=== PATIENT | female | born 1970 | race Caucasian/White ===

== ENCOUNTER → 2016-11-27 | Outpatient (CLI) | payer MEDICARE, MEDICAID ==
--- NOTE | 2016-11-27 16:17 | XCELERA REPORT ---
[address] [address] Lower Extremity Venous Evaluation Name: EILEEN TAPIA Age: 46 yrs Gender: Female : 1970 Patient Status: Outpatient Patient Location: Study Date: 11/27/2016 03:38 PM Procedure: Color flow and duplex imaging of the veins of the left lower extremity as well as the right Common Femoral vein. Reason For Study: LLE PAIN Ordering Physician: YAMILET GOOD Performed By: Eloisa Teresa Right Sided Venous Evaluation The right common femoral vein is fully compressible. Spontaneous and phasic flow is present in the right common femoral vein. Left Sided Venous Evaluation A lucent oval structure, 2.83 x 0.95 is probably a Popliteal cyst. Normal vessel filling wall to wall, compression and augmentation as well as Colour flow down to the infrageniculate veins. Critical Findings Called [phone] at about 1600. Interpretation Summary No duplex evidence of DVT or obstruction in the left lower extremity nor in the right Common Femoral vein. A left Popliteal cyst is noted. : YAMILET GOOD > Dakota Lorenzo
== END ==
LOC: SP 15:36
PROVIDERS: ATTEND Physician Assistant
DX: M79.662 Pain in left lower leg (principal)
CPT/HCPCS: 93971

== ENCOUNTER → 2016-12-25 | Outpatient (CLI) | payer MEDICARE, MEDICAID | LOC: RAD 07:16 | PROVIDERS: ATTEND Physician Assistant | DX: M25.562 Pain in left knee (principal) ==

== ENCOUNTER 2017-01-22 13:44 | Emergency (ER) | payer MEDICARE, MEDICAID ==
[2017-01-22] MEDS ORDERED: ONDANSETRON 4 MG TAB.RAPDIS PO ONE (14:32)
[2017-01-22] MEDS ORDERED: IBUPROFEN 800 MG TABLET PO ONE (14:32)
--- NOTE | 2017-01-22 14:33 | ER Document Report ---
ED Medical Screen (RME) - General Stated Complaint: BACK PAIN Mode of Arrival: Wheelchair Information source: Patient Notes: pt presents with c/o back pain, reports hx of back problems for 20 years. Last sunday she twisted her back. Went to [place] all day, coughed and snapped something in her back. Denies urinary/bowel retention/incontinence. Reports left hand was tingling, pain goes down right leg. Did not take any pain medication. I have greeted and performed a rapid initial assessment of this patient. A comprehensive ED assessment and evaluation of the patient, analysis of test results and completion of the medical decision making process will be conducted by additional ED providers. TRAVEL OUTSIDE OF THE [place] IN LAST 30 DAYS: No Physical Exam - Vital signs Vitals: Temp Pulse Resp BP Pulse Ox 98.1 F 106 H 18 150/75 H 97 01/22/17 13:55 01/22/17 13:55 01/22/17 13:55 01/22/17 13:55 01/22/17 13:55 Course - Vital Signs Vital signs: Temp Pulse Resp BP Pulse Ox 98.1 F 106 H 18 150/75 H 97 01/22/17 13:55 01/22/17 13:55 01/22/17 13:55 01/22/17 13:55 01/22/17 13:55
[2017-01-22] MEDS ORDERED: DIAZEPAM INJ 10 MG/2 ML DISP.SYRIN IM ONE (19:22)
[2017-01-22] MEDS ORDERED: HYDROCODONE/ACETAMINOPHEN 5-325 MG 6 TAB/DSPK PO PRN (19:22)
[2017-01-22] MEDS ORDERED: KETOROLAC TROMETHAMINE 60 MG/2 ML SDV IM ONE (19:22)
--- NOTE | 2017-01-22 19:25 | ER Document Report ---
ED Neck/Back Problem - General Chief Complaint: Back Pain Stated Complaint: BACK PAIN Time seen by provider: 19:23 Mode of Arrival: Wheelchair Information source: Patient TRAVEL OUTSIDE OF THE [place] IN LAST 30 DAYS: No - HPI Patient complains to provider of: Pain, Lower back Onset: Last week Onset: Sudden Timing: Constant, Still present Quality of pain: Achy Severity: Severe Pain Level: 5 Context: Turning Recent injury: Yes Associated symptoms: Radiation to leg - Right side. denies: Incontinence, Motor loss, Numbness/tingling, Unable to urinate Exacerbated by: Movement of trunk Relieved by: Nothing Similar symptoms previously: Yes Notes: 46-year-old female presents to the emergency room complaining of lower back pain radiating down the right leg is been going on for the past week, states she was getting up off the toilet interest to the wrong way, felt something snap in her back and she has been having pain ever since, she denies any numbness or tingling to the distal extremities or the groin, no bowel or bladder dysfunction, no fevers, she reports a history of low back pain 20 years but this is worse than usual, she reports the pain is worse with any movement of the trunk, there is virtually no alleviating position she consented and make it better - Related Data Allergies/Adverse Reactions: gabapentin [From Neurontin] Allergy (Verified 01/22/17 14:36) morphine Allergy (Verified 01/22/17 14:36) Past Medical History - General Information source: Patient - Social History Smoking Status: Current Every Day Smoker Chew tobacco use (# tins/day): Yes Family History: Reviewed & Not Pertinent Patient has suicidal ideation: No Patient has homicidal ideation: No Renal/ Medical History: Denies: Hx Peritoneal Dialysis - Immunizations Hx Diphtheria, Pertussis, Tetanus Vaccination: Yes Review of Systems - Review of Systems Constitutional: No symptoms reported EENT: No symptoms reported Cardiovascular: No symptoms reported Respiratory: No symptoms reported Gastrointestinal: No symptoms reported Genitourinary: No symptoms reported Female Genitourinary: No symptoms reported Musculoskeletal: See HPI Skin: No symptoms reported Hematologic/Lymphatic: No symptoms reported Neurological/Psychological: No symptoms reported -: Yes All other systems reviewed and negative Physical Exam - Vital signs Vitals: Temp Pulse Resp BP Pulse Ox 98.1 F 106 H 18 150/75 H 97 01/22/17 13:55 03/27/17 13:55 01/22/17 13:55 01/22/17 13:55 01/22/17 13:55 Interpretation: Tachycardic - General General appearance: Other - Tearful In distress: None - HEENT Head: Normocephalic, Atraumatic Eyes: Normal Conjunctiva: Normal Extraocular movements intact: Yes Eyelashes: Normal Pupils: PERRL - Respiratory Respiratory status: No respiratory distress Chest status: Nontender Breath sounds: Normal Chest palpation: Normal - Cardiovascular Rhythm: Regular Heart sounds: Normal auscultation Murmur: No - Abdominal Inspection: Obese Distension: No distension Bowel sounds: Normal Tenderness: Nontender Organomegaly: No organomegaly - Back Back: Tender - Tender to palpate in the right paraspinal musculature, radiating down the right buttock - Extremities General upper extremity: Normal inspection, Other - Distal sensation and motor is intact with 2+ DP pulses General lower extremity: Normal inspection - Neurological Neuro grossly intact: Yes Cognition: Normal Orientation: AAOx4 [place] Coma Scale Eye Opening: Spontaneous [place] Coma Scale Verbal: Oriented [place] Coma Scale Motor: Obeys Commands [place] Coma Scale Total: 15 Speech: Normal Cranial nerves: Normal - Skin Skin Temperature: Warm Skin Moisture: Dry Skin Color: Normal Course - Re-evaluation Re-evalutation: 01/22/17 19:26 Patient with lumbar musculoskeletal strain, she was provided with muscle relaxers and pain medication as well as information for follow-up, advised to return if symptoms worsen, patient acknowledges understanding and agreement with this plan 01/22/17 20:34 Patient does report significant pain relief, in fact she was able to stand up, walk to the bathroom with assistance and actually had a smile on her face on reevaluation, patient was discharged with instructions as well as prescription - Vital Signs Vital signs: Temp Pulse Resp BP Pulse Ox 98.1 F 108 H 16 157/88 H 96 01/22/17 13:55 01/22/17 20:13 01/22/17 20:13 01/22/17 20:13 01/22/17 20:13 Discharge - Discharge Clinical Impression: Lumbar strain Qualifiers: Encounter type: initial encounter Qualified Code(s): S39.012A - Strain of muscle, fascia and tendon of lower back, initial encounter Condition: Stable Disposition: HOME, SELF-CARE Instructions: Low Back Pain ([facility]), Ice Packs ([facility]), Muscle Strain ([facility]), Oral Narcotic Medication ([facility]), Warm Packs ([facility]) Additional Instructions: Follow up with your primary care provider in one to 2 days. Return to the emergency room immediately if symptoms worsen or any additional concerns. Prescriptions: Carisoprodol [Soma 350 Mg Tablet] 350 mg PO TID #30 tablet Oxycodone HCl/Acetaminophen [Percocet 5-325 mg Tablet] 1 - 2 tab PO ASDIR PRN # 20 tablet PRN Reason: Referrals: ANGELINA FRAZIER DO [Primary Care Provider] - Follow up as needed
[2017-01-22 20:14] VITALS: BP 157/88
== END 2017-01-22 20:13 | disposition home or self-care (01) ==
LOC: ER 13:44
DX: S39.012A Strain of muscle, fascia and tendon of lower back, initial encounter (principal); X50.1XXA Overexertion from prolonged static or awkward postures, initial encounter; X58.XXXA Exposure to other specified factors, initial encounter; Y93.89 Activity, other specified; R00.0 Tachycardia, unspecified; F17.200 Nicotine dependence, unspecified, uncomplicated; Z88.5 Allergy status to narcotic agent; Z88.6 Allergy status to analgesic agent
CPT/HCPCS: 99283; A9270 ×3; J3360; J1885; S0119

== ENCOUNTER 2017-05-03 08:02 | Day surgery (SDC) | payer MEDICARE, MEDICAID ==
[2017-05-02 13:26] LABS: HEMATOCRIT 45.4 % (36.0-47.0); HGB HCT DIFFERENCE -0.4; MEAN CORPUSCULAR HEMOGLOBIN 30.9 pg (27.0-33.4); MEAN CORPUSCULAR VOLUME 94 fl (80-97); RED BLOOD COUNT 4.84 10^6/uL (3.72-5.28); RED CELL DISTRIBUTION WIDTH 16.4 % (11.5-14.0); WHITE BLOOD COUNT 7.1 10^3/uL (4.0-10.5)
[2017-05-02 13:37] LABS: APPEARANCE,URINE SLIGHTLY-CLOUDY; BILIRUBIN,URINE NEGATIVE (NEGATIVE); GLUCOSE, URINE NEGATIVE (NEGATIVE); KETONES,URINE NEGATIVE (NEGATIVE); LEUKOCYTE ESTERASE,URINE NEGATIVE (NEGATIVE); NITRITE,URINE NEGATIVE (NEGATIVE); PROTEIN,URINE NEGATIVE (NEGATIVE); URINE SPECIFIC GRAVITY 1.003; UROBILINOGEN,URINE NEGATIVE mg/dL (<2.0)
[~2017-05-03 08:02] MED LIST: LACTATED RINGERS 1000 ML IV PRN; LIDOCAINE 0.5% INJ-PF (5 MG/ML) 50 ML SDV SUBCUT PRN
[2017-05-03] MEDS ORDERED: MIDAZOLAM 2 MG/2 ML INJ ONE (10:55)
[2017-05-03] MEDS ORDERED: PROPOFOL INJ 200 MG/20 ML VIAL IV ONE (10:55)
[2017-05-03] MEDS ORDERED: KETOROLAC TROMETHAMINE 60 MG/2 ML SDV ONE (10:55)
[2017-05-03] MEDS ORDERED: FENTANYL CITRATE INJ/PF 100 MCG/2 ML AMPUL ONE (10:55)
[2017-05-03] MEDS ORDERED: ONDANSETRON HCL INJ/PF 4 MG/2 ML SDV ONE (10:56)
[2017-05-03] MEDS ORDERED: LIDOCAINE 1%/EPINEPHRINE INJ 20 ML VIAL ONE (11:09)
[2017-05-03] MEDS ORDERED: FENTANYL CITRATE INJ/PF 250 MCG/5 ML AMPULE ONE (11:27)
[2017-05-03] MEDS ORDERED: DIPHENHYDRAMINE HCL 50 MG/ML VIAL IV PRN (12:02)
[2017-05-03] MEDS ORDERED: MEPERIDINE HCL/PF INJ 25 MG/1 ML DISP.SYRIN IV PRN (12:02)
[2017-05-03] MEDS ORDERED: PROMETHAZINE HCL INJ 25 MG/1 ML VIAL IV PRN ×2 (12:02)
[2017-05-03] MEDS ORDERED: FENTANYL CITRATE INJ/PF 100 MCG/2 ML AMPUL IV PRN ×3 (12:02)
--- NOTE | 2017-05-03 12:58 | OPERATIVE REPORT E ---
Operative Report NAME: EILEEN TAPIA : 1970 AGE: 46Y DATE OF SURGERY: 05/03/2017 ROOM: PREOPERATIVE DIAGNOSES: 1. ABNORMAL UTERINE BLEEDING. 2. ANEMIA. 3. STRESS URINARY INCONTINENCE. POSTOPERATIVE DIAGNOSES: 1. ABNORMAL UTERINE BLEEDING. 2. ANEMIA. 3. STRESS URINARY INCONTINENCE. SURGEON: LORELEI POLLARD M.D. ANESTHESIA: Dr. Pena with general. FINDINGS: A uterine cavity that measured a length of 6.5 cm. Width was 3.0 cm. COMPLICATIONS: None. ESTIMATED BLOOD LOSS: 5 mL. SPECIMENS REMOVED: None. PROCEDURE: Novasure ablation with hysteroscope. PROCEDURE IN DETAIL: Patient was taken to the operating room, prepared and draped in a normal sterile fashion in a dorsal lithotomy position. Under sterile conditions, a Myrick catheter was placed to gravity with the anticipation of doing a suburethral tape to help with the stress urinary incontinence. The sterile speculum was placed into the vagina and the cervix was grasped with a single-tooth tenaculum on the anterior aspect. The cervix was then sounded to approximately 12 cm. The cervix was then dilated to accommodate the Novasure device and the device was inserted and fired adequately without difficulty. Once the Novasure was completed, the hysteroscope was then reduced and the cavity was reinspected once more. I then began examining the patient in regards to the suburethral tape that was planned as part of this procedure. It was noted that her obturator foramen was quite superior to the area that I would need to operate, and her pelvic bones were large and I felt that the device could not be safely fired into the proper space for placement, and that if I did attempt to place the tape that there was fear of actually kinking her urethra to where she would not be able to void adequately, so I decided to abandon this portion of the case and referred the patient to urogynecology later on for a possible placement. Patient tolerated the procedure well. Sponge, lap, and needle counts were correct x2 and the patient was taken to recovery in stable condition. DICTATING PHYSICIAN: LORELEI POLLARD M.D. [id number] PHY#: [id number] ID: [id number] JOB#: [id number] ACCT: [id number] cc:LORELEI POLLARD M.D. >
--- NOTE | 2017-05-03 12:59 | EKG REPORT ---
SEVERITY:- NORMAL ECG - SINUS RHYTHM : Confirmed by: Edgar Mcdonald MD 03-May-2017 12:58:43
[2017-05-03] MEDS ORDERED: OXYCODONE-ACETAMINOPHEN 5-325 MG TABLET ONE (13:09)
[2017-05-03] MEDS ORDERED: DEXAMETHASONE SOD PHOSPHATE INJ 4 MG/1 ML VIAL ONE (13:19)
[2017-05-03] MEDS ORDERED: SUCCINYLCHOLINE CHLORIDE INJ 200 MG/10 ML VIAL ONE (13:19)
[2017-05-03 13:57] VITALS: BP 160/88
== END 2017-05-03 14:05 | disposition home or self-care (01) ==
LOC: OROUT 08:02
PROVIDERS: ATTEND Obstetrics & Gynecology
PROC: 0U5B8ZZ Destruction of Endometrium, Via Natural or Artificial Opening Endoscopic (ICD-10-PCS; principal; 2017-05-03 10:30)
DX: N93.9 Abnormal uterine and vaginal bleeding, unspecified (principal); D64.9 Anemia, unspecified; N39.3 Stress incontinence (female) (male); I10 Essential (primary) hypertension; J44.9 Chronic obstructive pulmonary disease, unspecified; F17.210 Nicotine dependence, cigarettes, uncomplicated; F32.9 Major depressive disorder, single episode, unspecified; Z21 Asymptomatic human immunodeficiency virus [HIV] infection status; G43.909 Migraine, unspecified, not intractable, without status migrainosus; E66.9 Obesity, unspecified; Z88.5 Allergy status to narcotic agent; Z68.41 Body mass index [BMI] 40.0-44.9, adult
CPT/HCPCS: 36415 ×2; 84132; 84703; 85027; 81001; 93005; 93010; 58563; J2250; J1100; J1885; J3010 ×2; J3490; A9270; J0330; J2405; J2704; 952

== ENCOUNTER → 2017-05-31 | Outpatient (CLI) | payer MEDICARE, MEDICAID ==
[2017-05-31 09:56] LABS: APPEARANCE,URINE SLIGHTLY-CLOUDY; BILIRUBIN,URINE NEGATIVE (NEGATIVE); GLUCOSE, URINE NEGATIVE (NEGATIVE); KETONES,URINE NEGATIVE (NEGATIVE); LEUKOCYTE ESTERASE,URINE NEGATIVE (NEGATIVE); NITRITE,URINE NEGATIVE (NEGATIVE); PROTEIN,URINE NEGATIVE (NEGATIVE); URINE SPECIFIC GRAVITY 1.004; UROBILINOGEN,URINE NEGATIVE mg/dL (<2.0)
[2017-05-31 10:21] LABS: ABSOLUTE BASOPHILS # (AUTO) 0.1 10^3/uL (0.0-0.2); ABSOLUTE EOSINOPHILS # (AUTO) 0.2 10^3/uL (0.0-0.6); ABSOLUTE LYMPHOCYTES (AUTO) 1.5 10^3/uL (0.5-4.7); ABSOLUTE MONOCYTES (AUTO) 0.5 10^3/uL (0.1-1.4); ABSOLUTE NEUT (AUTO) 3.6 10^3/uL (1.7-8.2); BASOPHILS % (AUTO) 0.9 % (0-2); EOSINOPHILS % (AUTO) 4.1 % (0-6); HEMATOCRIT 41.1 % (36.0-47.0); HGB HCT DIFFERENCE 0.9; LYMPHOCYTES % (AUTO) 25.2 % (13-45); MEAN CORPUSCULAR HEMOGLOBIN 32.2 pg (27.0-33.4); MEAN CORPUSCULAR VOLUME 95 fl (80-97); MONOCYTES % (AUTO) 9.2 % (3-13); RED BLOOD COUNT 4.34 10^6/uL (3.72-5.28); RED CELL DISTRIBUTION WIDTH 15.5 % (11.5-14.0); SEGMENTED NEUTROPHILS % (AUTO) 60.6 % (42-78); WHITE BLOOD COUNT 5.9 10^3/uL (4.0-10.5)
--- NOTE | 2017-05-31 10:27 | RADIOLOGY REPORT (SQ) ---
EXAM DESCRIPTION: CHEST PA/LATERAL COMPLETED DATE/TIME: 05/31/2017 9:31 am REASON FOR STUDY: PRE OP COMPARISON: None. EXAM PARAMETERS: NUMBER OF VIEWS: two views TECHNIQUE: Digital Frontal and Lateral radiographic views of the chest acquired. RADIATION DOSE: NA LIMITATIONS: none FINDINGS: LUNGS AND PLEURA: No opacities, masses or pneumothorax. No pleural effusion. MEDIASTINUM AND HILAR STRUCTURES: No masses or contour abnormalities. HEART AND VASCULAR STRUCTURES: Heart normal size. No evidence for failure. BONES: No acute findings. HARDWARE: None in the chest. OTHER: No other significant finding. IMPRESSION: NO SIGNIFICANT RADIOGRAPHIC FINDING IN THE CHEST. TECHNICAL DOCUMENTATION: JOB ID: [id number] [employer]- All Rights Reserved
[2017-05-31 11:24] LABS: ANION GAP 10 (5-19); BLOOD UREA NITROGEN 16 mg/dL (7-20); CALCIUM 9.8 mg/dL (8.4-10.2); CARBON DIOXIDE 27 mmol/L (22-30); CHLORIDE 99 mmol/L (98-107); CREATININE RESULT 0.87 mg/dL (0.52-1.25); GLUCOSE 84 mg/dL (75-110); POTASSIUM 3.7 mmol/L (3.6-5.0); SODIUM 136.3 mmol/L (137-145)
--- NOTE | 2017-05-31 13:09 | EKG REPORT ---
SEVERITY:- NORMAL ECG - SINUS RHYTHM : Confirmed by: Edgar Mcdonald MD 31-May-2017 13:07:56
== END ==
LOC: OD 08:29
PROVIDERS: ATTEND Orthopaedic Surgery
DX: Z01.818 Encounter for other preprocedural examination (principal)
CPT/HCPCS: 36415; 71020; 80048; 81001; 85025; 93005; 93010

== ENCOUNTER 2017-06-20 05:21 | Inpatient (IN) | payer MEDICARE, MEDICAID ==
[~2017-06-20 05:21] MED LIST changes: +BUPIVACAINE INJ/PF LIPOSOME/PF 266 MG/20 ML SDV INJ PRN; +CEFAZOLIN INJ 1 GM VIAL IV PRN; +IBUPROFEN 800 MG in NORMAL SALINE 250 ML IV PRN; +LANSOPRAZOLE 15 MG TAB.RAP.DR PO PRN; +OXYCODONE HCL SR 10 MG TABLET PO PRN; +VANCOMYCIN HCL 1,000 MG in DEXTROSE 5%-WATER 250 ML IV PRN
[2017-06-20] MEDS ORDERED: BUPIVACAINE INJ/PF LIPOSOME/PF 266 MG/20 ML SDV ONE (06:45)
[2017-06-20] MEDS ORDERED: THROMBIN (BOVINE) TOPICAL 20000 UNIT VIAL ONE (06:45)
[2017-06-20] MEDS ORDERED: THROMBIN (BOVINE) 5000 UNIT EPITAXIS KIT ONE (06:45)
[2017-06-20] MEDS ORDERED: MIDAZOLAM 2 MG/2 ML INJ ONE (07:11)
[2017-06-20] MEDS ORDERED: EPHEDRINE SULFATE INJ 50 MG/1 ML AMPULE ONE (07:12)
[2017-06-20] MEDS ORDERED: PROPOFOL INJ 200 MG/20 ML VIAL IV ONE ×2 (07:12)
[2017-06-20] MEDS ORDERED: KETAMINE HCL INJ 500 MG/10 ML VIAL ONE (07:12)
[2017-06-20] MEDS ORDERED: TRANEXAMIC ACID INJ/PF 1,000 MG/10 ML SDV IV ONE ×2 (07:13→10:30)
[2017-06-20] MEDS ORDERED: FENTANYL CITRATE INJ/PF 250 MCG/5 ML AMPULE ONE (07:31)
[2017-06-20] MEDS ORDERED: MEPERIDINE HCL/PF INJ 25 MG/1 ML DISP.SYRIN IV PRN (08:07)
[2017-06-20] MEDS ORDERED: FENTANYL CITRATE INJ/PF 100 MCG/2 ML AMPUL IV PRN ×3 (08:07)
[2017-06-20] MEDS ORDERED: PROMETHAZINE HCL INJ 25 MG/1 ML VIAL IV PRN ×2 (08:07)
[2017-06-20] MEDS ORDERED: DIPHENHYDRAMINE HCL 50 MG/ML VIAL IV PRN ×2 (08:07→08:50)
[2017-06-20] MEDS ORDERED: ALBUTEROL SULFATE HFA (90 MCG/PUFF) 8 GM MDI (1 MDI/ER DISP) IH PRN (08:49)
[2017-06-20] MEDS ORDERED: BUDESONIDE/FORMOTEROL 160-4.5 MCG 60 PUFF/6 GM MDI IH PRN (08:49)
--- NOTE | 2017-06-20 08:49 | Operative Report ---
Operative Report DATE OF SURGERY: 06/20/17 PREOPERATIVE DIAGNOSIS: Left knee arthritis OPERATION: Left knee arthroplasty SURGEON: YAMILET WANG 1ST MEDICAL LIAISON: CELESTE OCSTA ANESTHESIA: GA TISSUE REMOVED OR ALTERED: Bone to pathology ESTIMATED BLOOD LOSS: 200 PROCEDURE: Implants used: Femur: Omega triathlon #6 CR femur Tibia: #5 tibia Tibial liner: 9 mm CS insert Patella: 32 mm oval patella Procedure with the patient supine on the operating table the left the limb is prepped and draped in a sterile fashion. The limb was elevated for exsanguination and the tourniquet inflated to 280 torr. A standard midline median parapatellar approach the knee is taken. Access is gained to the femoral canal through the intercondylar notch. Intramedullary alignment instrumentation used to resect 10 mm of distal femur in 5 of valgus. Sizing guide indicated a size 6 femur. Appropriate cutting jig is then used to fashion anterior posterior and chamfer cuts. A trial reduction femurs performed and this is judged to be adequate. Attention was next turned to the tibia. Using an extra medullary alignment system 9 millimeters was resected off the lateral tibial plateau. This is sized to a size 5 tibia. A trial reduction was now performed with a 6 femur and a 5 tibia using a 9 millimeters spacer. It is full extension and central patellofemoral tracking. The articular surface the patella was next resected using an oscillating saw. All trial implants were removed. Polymethylmethacrylate is mixed and used to cement the above implants in place. On adequate curing the cement excess cement was removed the tourniquet was deflated hemostasis obtained the wound is then closed in layers using interrupted Vicryl followed by leola. A sterile compressive dressing was applied and the patient returned to recovery room in satisfactory condition.
[2017-06-20] MEDS ORDERED: ONDANSETRON 4 MG TAB.RAPDIS PO PRN (08:50)
[2017-06-20] MEDS ORDERED: RINGERS SOLUTION,LACTATED 1,000 ML IV PRN (08:50)
[2017-06-20] MEDS ORDERED: ZOLPIDEM TARTRATE 5 MG TABLET PO PRN (08:50)
[2017-06-20] MEDS ORDERED: ONDANSETRON HCL INJ/PF 4 MG/2 ML SDV IV PRN (08:50)
[2017-06-20] MEDS ORDERED: ACETAMINOPHEN 325 MG TABLET PO PRN (08:50)
[2017-06-20] MEDS ORDERED: MAG HYDROX/AL HYDROX/SIMETH SUSP 30 ML UDCUP PO PRN (08:50)
[2017-06-20] MEDS ORDERED: ACETAMINOPHEN 100 ML IV ONE (09:20)
[2017-06-20] MEDS ORDERED: HYDROMORPHONE HCL INJ/PF 2 MG/ML AMPULE ONE (09:20)
[2017-06-20] MEDS ORDERED: HYDROMORPHONE HCL INJ/PF 2 MG/ML AMPULE IV PRN (09:30)
[2017-06-20] MEDS ORDERED: SUCCINYLCHOLINE CHLORIDE INJ 200 MG/10 ML VIAL ONE (09:51)
[2017-06-20] MEDS ORDERED: DEXAMETHASONE SOD PHOSPHATE INJ 4 MG/1 ML VIAL ONE (09:51)
[2017-06-20] MEDS ORDERED: ONDANSETRON HCL INJ/PF 4 MG/2 ML SDV ONE (09:51)
[2017-06-20] MEDS ORDERED: KETOROLAC TROMETHAMINE 60 MG/2 ML SDV ONE (09:51)
[2017-06-20] MEDS ORDERED: LIDOCAINE 2% INJ-PF (20 MG/ML) 10 ML AMPUL ONE (09:51)
[2017-06-20] MEDS: HYDROMORPHONE HCL INJ/PF 2 MG/ML AMPULE ONE ×2 (09:55→10:05)
[2017-06-20] MEDS ORDERED: (PENDING PHARMACY ID) (Multivit-Min/Iron Fum/Folic Ac [Multi-Vitamin-Minerals Tablet] 1 TA PO SCH (10:00)
[2017-06-20] MEDS ORDERED: (PENDING PHARMACY ID) (Lisinopril [Lisinopril] 40 MG) PO SCH (10:00)
[2017-06-20] MEDS ORDERED: REYATAZ 300 MG PO SCH (10:00)
[2017-06-20] MEDS ORDERED: [UNRECOGNIZED DRUG - OTHER] PO SCH (10:00)
--- NOTE | 2017-06-20 10:04 | RADIOLOGY REPORT (SQ) ---
EXAM DESCRIPTION: KNEE LEFT 2 VIEWS COMPLETED DATE/TIME: 06/20/2017 9:45 am REASON FOR STUDY: Post OP -Long Cassette in PACU M17.12 UNILATERAL PRIMARY OSTEOARTHRITIS, LEFT KNE E COMPARISON: MRI left knee 12/25/2016 NUMBER OF VIEWS: Two views TECHNIQUE: Digital radiographic images of the left knee post-procedure. LIMITATIONS: None. FINDINGS: BONES: No worrisome or unexpected findings post-procedure. DEVICE: Left total knee replacement with patellar resurfacing SOFT TISSUES: No worrisome findings. Expected postoperative soft tissue changes. IMPRESSION: SATISFACTORY POSTOPERATIVE LEFT KNEE. TECHNICAL DOCUMENTATION: JOB ID: [id number] [employer]- All Rights Reserved
[2017-06-20] MEDS: OXYCODONE HCL SR 10 MG TABLET PO SCH ×2 (13:59→21:35)
[2017-06-20] MEDS: IBUPROFEN 800 MG in NORMAL SALINE 250 ML IV SCH ×2 (14:46→21:35)
[2017-06-20] MEDS ORDERED: ALBUTEROL SULFATE HFA (90 MCG/PUFF) 200 PUFF/8.5 GM MDI IH PRN (15:39)
[2017-06-20] MEDS: SENNOSIDES/DOCUSATE 8.6-50 MG 1 EACH TABLET PO SCH (17:39)
[2017-06-20] MEDS: OXYBUTYNIN CHLORIDE 5 MG TABLET PO SCH (17:39)
[2017-06-20] MEDS ORDERED: EMTRICITABINE/TENOFOVIR 200-300 MG TABLET PO SCH (18:00)
[2017-06-20] MEDS ORDERED: RITONAVIR 100 MG TABLET PO SCH (18:00)
[2017-06-20] MEDS ORDERED: VALACYCLOVIR HCL 500 MG TABLET PO SCH (18:00)
[2017-06-20] MEDS ORDERED: VANCOMYCIN HCL 1,000 MG in DEXTROSE 5%-WATER 250 ML IV ONE (20:50)
[2017-06-20] MEDS: BUDESONIDE/FORMOTEROL 80-4.5 MCG 60 PUFF/6.9 GM MDI IH SCH (21:35)
[2017-06-20] MEDS ORDERED: RIVAROXABAN 10 MG TABLET PO SCH (22:00)
[2017-06-21] MEDS: OXYCODONE HCL IR 5 MG TABLET PO PRN ×2 (04:38→15:08)
[2017-06-21] MEDS: IBUPROFEN 800 MG in NORMAL SALINE 250 ML IV SCH ×2 (05:29→15:07)
[2017-06-21 05:40] LABS: HEMOGLOBIN 12.1 g/dL (12.0-15.5); HGB HCT DIFFERENCE 0.3; MEAN CORPUSCULAR HGB CONC 33.6 g/dL (32.0-36.0); MEAN CORPUSCULAR VOLUME 95 fl (80-97); RED BLOOD COUNT 3.78 10^6/uL (3.72-5.28); RED CELL DISTRIBUTION WIDTH 15.1 % (11.5-14.0); WHITE BLOOD COUNT 11.8 10^3/uL (4.0-10.5)
[2017-06-21 05:57] LABS: ANION GAP 9 (5-19); BLOOD UREA NITROGEN 15 mg/dL (7-20); CALCIUM 9.7 mg/dL (8.4-10.2); CARBON DIOXIDE 27 mmol/L (22-30); CHLORIDE 100 mmol/L (98-107); CREATININE RESULT 0.73 mg/dL (0.52-1.25); GLUCOSE 128 mg/dL (75-110); POTASSIUM 4.1 mmol/L (3.6-5.0); SODIUM 136.2 mmol/L (137-145)
[2017-06-21] MEDS ORDERED: LANSOPRAZOLE 30 MG TAB.RAP.DR PO SCH (06:00)
--- NOTE | 2017-06-21 06:44 | PDOC PROGRESS REPORT ---
Subjective Progress Note for:: 06/21/17 Subjective:: Patient with only minor complaints of discomfort Physical Exam Vital Signs: Temp Pulse Resp BP Pulse Ox 37.0 C 110 H 20 124/81 95 06/20/17 23:23 06/20/17 23:23 06/20/17 23:23 06/20/17 23:23 06/20/17 23:23 Intake & Output 06/19/17 06/20/17 06/21/17 06:59 06:59 06:59 Intake Total 0 2990 Output Total 1820 Balance 0 1170 Weight 127.9 kg General appearance: PRESENT: no acute distress Head exam: PRESENT: normocephalic Eye exam: PRESENT: EOMI Respiratory exam: PRESENT: unlabored Cardiovascular exam: PRESENT: RRR Pulses: PRESENT: +1 pedal pulses bilateral Vascular exam: PRESENT: normal capillary refill GI/Abdominal exam: PRESENT: soft Rectal exam: PRESENT: deferred Extremities exam: PRESENT: other - Right lower extremity dressing clean dry and intact. Distal neurovascular examination is intact. Neurological exam: PRESENT: alert, awake, oriented to person, oriented to place , oriented to time, oriented to situation, CN II-XII grossly intact. ABSENT: motor sensory deficit Psychiatric exam: PRESENT: appropriate affect, normal mood. ABSENT: homicidal ideation, suicidal ideation Skin exam: PRESENT: dry, intact, warm. ABSENT: cyanosis, rash Results Laboratory Results: 06/21/17 05:28 06/21/17 05:28 06/21/17 06/21/17 05:28 05:28 WBC 11.8 H RBC 3.78 Hgb 12.1 Hct 36.0 MCV 95 MCH 32.0 MCHC 33.6 RDW 15.1 H Plt Count 232 Sodium 136.2 L Potassium 4.1 Chloride 100 Carbon Dioxide 27 Anion Gap 9 BUN 15 Creatinine 0.73 Est GFR ( Amer) > 60 Est GFR (Non-Af Amer) > 60 Glucose 128 H Calcium 9.7 Impressions: Knee X-Ray 06/20/17 08:52 IMPRESSION: SATISFACTORY POSTOPERATIVE LEFT KNEE. Status: Imported from PACS Assessment & Plan - Diagnosis (1) Arthritis of left knee Is this a current diagnosis for this admission?: Yes Plan: 47-year-old white female postop day 1 from left knee arthroplasty. Patient doing well ambulating with physical therapy 30 feet yesterday. Plan for ongoing physical therapy today discharge tomorrow with home health shelter health physical therapy, wheeled walker, bedside commode. - Time Time Spent with patient: 15-24 minutes Anticipated discharge: Home with Homehealth Within: within 24 hours
[2017-06-21] MEDS ORDERED: ONDANSETRON HCL INJ/PF 4 MG/2 ML SDV IV PRN (08:00)
[2017-06-21] MEDS ORDERED: ONDANSETRON 4 MG TAB.RAPDIS PO PRN (08:00)
[2017-06-21] MEDS ORDERED: MAG HYDROX/AL HYDROX/SIMETH SUSP 30 ML UDCUP PO PRN (08:00)
[2017-06-21] MEDS ORDERED: ZOLPIDEM TARTRATE 5 MG TABLET PO PRN (08:00)
[2017-06-21] MEDS ORDERED: LISINOPRIL 10 MG TABLET PO SCH (10:00)
[2017-06-21] MEDS ORDERED: PRENATAL VITAMIN W-O CA NO5/FE FUMARATE/FA CAPSULE PO SCH (10:00)
[2017-06-21] MEDS ORDERED: MULTIVIT-STRESS FORMULA/ZINC TABLET PO SCH (10:00)
[2017-06-21] MEDS ORDERED: HYDROCHLOROTHIAZIDE 25 MG TABLET PO SCH (10:00)
[2017-06-21] MEDS ORDERED: ASCORBIC ACID 500 MG TABLET PO SCH (10:00)
[2017-06-21] MEDS: OXYCODONE HCL SR 10 MG TABLET PO SCH (10:26)
[2017-06-21] MEDS: SENNOSIDES/DOCUSATE 8.6-50 MG 1 EACH TABLET PO SCH (10:28)
[2017-06-21] MEDS: OXYBUTYNIN CHLORIDE 5 MG TABLET PO SCH (10:28)
[2017-06-21] MEDS: BUDESONIDE/FORMOTEROL 80-4.5 MCG 60 PUFF/6.9 GM MDI IH SCH (10:29)
[2017-06-21 17:13] VITALS: BP 145/82
--- NOTE | 2017-06-25 06:58 | PDOC DISCHARGE SUMMARY ---
General - Admit/Disc Date/PCP Admission Date/Primary Care Provider: 06/20/17 05:21 RANCHOS DE TAOS FRAZIER, REMOTE SENSING TECHNOLOGIST Discharge Date: 06/22/17 - Discharge Diagnosis (1) Arthritis of left knee Is this a current diagnosis for this admission?: Yes - Additional Information Resuscitation Status: Full Code Discharge Diet: As Tolerated Discharge Activity: Activity As Tolerated, No Lifting Over 10 Pounds, No Lifting /Push/Pulling, Slowly Increase Activity Home Medications: Albuterol Sulfate [Ventolin HFA MDI 18 GM] 2 puff IH Q6HP PRN 06/20/17 Atazanavir Sulfate [Reyataz 300 mg Capsule] 300 mg PO DAILY 06/20/17 Budesonide/Formoterol Fumarate [Symbicort HFA 80-4.5 mcg Inhaler 6.9 gm] 2 puff IH Q12 06/20/17 Buprenorphine [Butrans] 10 mcg TP Q7D 06/20/17 Cyclobenzaprine HCl [Flexeril 10 mg Tablet] 10 mg PO Q12HP PRN 06/20/17 Emtricitabine/Tenofovir [Truvada 200 mg-300 mg Tablet] 1 tab PO DAILY 06/20/17 Hydrochlorothiazide [Hydrodiuril 25 mg Tablet] 25 mg PO DAILY 06/20/17 Lisinopril [Prinivil 40 mg Tablet] 40 mg PO DAILY 06/20/17 Meloxicam [Mobic 15 mg Tablet] 15 mg PO DAILY 06/20/17 Oxybutynin Chloride [Ditropan 5 mg Tablet] 10 mg PO BID 06/20/17 Ritonavir [Norvir] 100 mg PO DAILY 06/20/17 Valacyclovir HCl [Valacyclovir] 500 mg PO DAILY 06/20/17 History of Present Illness History of Present Illness: EILEEN TAPIA is a 47 year old female with progressive left knee pain and functional disability secondary osteoarthritis. She is admitted for elective left knee arthroplasty. Hospital Course Hospital Course: Patient is admitted through the operating room where she undergoes uncomplicated left knee arthroplasty. She is returned to the floor in satisfactory condition. She makes excellent progress with physical therapy. She is subsequently ready for discharge home on postop day 1. The underlying picot dressing is clean dry and intact. There is minimal pedal edema. Physical Exam Vital Signs: Temp Pulse Resp BP Pulse Ox 37.1 C 132 H 18 145/82 H 98 08/24/17 17:09 06/21/17 17:09 06/21/17 17:09 06/21/17 17:09 06/21/17 17:09 General appearance: PRESENT: no acute distress Head exam: PRESENT: normocephalic Eye exam: PRESENT: EOMI Respiratory exam: PRESENT: unlabored Cardiovascular exam: PRESENT: RRR Pulses: PRESENT: +1 pedal pulses bilateral Vascular exam: PRESENT: normal capillary refill GI/Abdominal exam: PRESENT: soft Rectal exam: PRESENT: deferred Extremities exam: PRESENT: other - Left lower extremity picot dressing is clean dry and intact. There is minimal pedal edema. Distal neurovascular examination is intact. Neurological exam: PRESENT: alert, awake, oriented to person, oriented to place , oriented to time, oriented to situation. ABSENT: motor sensory deficit Psychiatric exam: PRESENT: appropriate affect, normal mood. ABSENT: homicidal ideation, suicidal ideation Skin exam: PRESENT: dry, intact, warm. ABSENT: cyanosis, rash Results Laboratory Results: 06/21/17 05:28 06/21/17 05:28 Impressions: Knee X-Ray 06/20/17 08:52 IMPRESSION: SATISFACTORY POSTOPERATIVE LEFT KNEE. Status: Imported from PACS Plan Discharge Plan: She did be discharged home with home health nursing, home health physical therapy, wheeled walker, bedside commode. Follow-up will be with Dr. Calzada and [facility] for surgery in 2 weeks for staple removal. In the interim the picot dressing can be removed on postop day 7 replaced with an OpSite.
== END 2017-06-21 17:59 | disposition home health service (06) | DRG 470 ==
LOC: INOR 05:21 → 4S 11:26
PROVIDERS: ADMIT Orthopaedic Surgery; ATTEND Orthopaedic Surgery
PROC: 0SRD0J9 Replacement of Left Knee Joint with Synthetic Substitute, Cemented, Open Approach (ICD-10-PCS; principal; 2017-06-20 07:30)
DX: M17.12 Unilateral primary osteoarthritis, left knee (principal); I10 Essential (primary) hypertension; Z21 Asymptomatic human immunodeficiency virus [HIV] infection status; K21.9 Gastro-esophageal reflux disease without esophagitis; F17.210 Nicotine dependence, cigarettes, uncomplicated; Z88.6 Allergy status to analgesic agent; Z98.51 Tubal ligation status
CPT/HCPCS: 01402; 36415; 80048; 81025; 84132; 85027; 88304; 88311; 94799; C9290; G8978-GP; G8979-GP; J0131; J0330; J0690; J1100; J1170; J1741; J1885; J2250; J2405; J2704; J3010; J3370; J3490; J7050; J7060

== ENCOUNTER → 2017-08-21 | Outpatient (CLI) | payer MEDICARE, MEDICAID ==
--- NOTE | 2017-08-21 21:29 | RADIOLOGY REPORT (SQ) ---
EXAM DESCRIPTION: MRIRLJ WO COMPLETED DATE/TIME: 08/21/2017 3:53 pm REASON FOR STUDY: IDIOPATHIC ASEPTIC NECROSIS OF RIGHT FEMUR COMPARISON: None. TECHNIQUE: Noncontrast multiplanar MR imaging. Sequences include wide field of view pelvis and focu sed hip sequences. Fat sensitive, water sensitive, and cartilage sensitive sequences. LIMITATIONS: None. FINDINGS: MARROW SIGNAL: Normal in the lumbar spine, pelvis. Specific hip findings are described be low. RIGHT HIP: Geographic abnormal signal in the anterior superior femoral head consistent with AVN. No collapse of the articular surface. Mild effusion. Hip joint space relatively maintained. Suspect subtle tear along the posterosuperior labrum. No significant paralabral cyst formation. LEFT HIP: Geographic abnormal signal throughout the anterior half of the femoral head consistent wit h AVN. No articular surface collapse. Hip joint space maintained. No effusion. No overt labral te ar or paralabral cyst. REMAINDER OF THE OSSEOUS PELVIS: SI joints normal. Symphasis pubis intact. No Avulsion injury evide nt. INTRA- AND EXTRAPELVIC SOFT TISSUES: Mild bilateral ovarian region cysts. In a reproductive age fema le, doubtful clinical significance. 3.5 cm hyperintense T2 ovoid mass along the deep aspect of the i liac muscle. Potentially related to bursitis or other cyst. No inguinal adenopathy or hernia. No r egional mass or muscle tear. IMPRESSION: 1. Bilateral AVN in the femoral heads. No evidence of articular surface collapse. Rela tive maintenance of the hip joint spaces. There is a right hip joint effusion.
== END ==
LOC: RAD 13:53
PROVIDERS: ATTEND Orthopaedic Surgery
DX: M87.051 Idiopathic aseptic necrosis of right femur (principal)

== ENCOUNTER → 2017-08-23 | Outpatient (CLI) | payer MEDICARE, MEDICAID ==
[2017-08-23 15:54] LABS: APPEARANCE,URINE SLIGHTLY-CLOUDY; BILIRUBIN,URINE NEGATIVE (NEGATIVE); GLUCOSE, URINE NEGATIVE (NEGATIVE); KETONES,URINE NEGATIVE (NEGATIVE); LEUKOCYTE ESTERASE,URINE NEGATIVE (NEGATIVE); NITRITE,URINE NEGATIVE (NEGATIVE); PROTEIN,URINE NEGATIVE (NEGATIVE); URINE SPECIFIC GRAVITY 1.013; UROBILINOGEN,URINE NEGATIVE mg/dL (<2.0)
[2017-08-23 16:00] LABS: ABSOLUTE BASOPHILS # (AUTO) 0.1 10^3/uL (0.0-0.2); ABSOLUTE EOSINOPHILS # (AUTO) 0.3 10^3/uL (0.0-0.6); ABSOLUTE LYMPHOCYTES (AUTO) 1.5 10^3/uL (0.5-4.7); ABSOLUTE MONOCYTES (AUTO) 0.6 10^3/uL (0.1-1.4); ABSOLUTE NEUT (AUTO) 4.5 10^3/uL (1.7-8.2); BASOPHILS % (AUTO) 1.3 % (0-2); EOSINOPHILS % (AUTO) 4.1 % (0-6); HEMATOCRIT 36.7 % (36.0-47.0); HEMOGLOBIN 12.2 g/dL (12.0-15.5); HGB HCT DIFFERENCE -0.1; LYMPHOCYTES % (AUTO) 21.5 % (13-45); MEAN CORPUSCULAR HGB CONC 33.1 g/dL (32.0-36.0); MEAN CORPUSCULAR VOLUME 88 fl (80-97); MONOCYTES % (AUTO) 9.2 % (3-13); SEGMENTED NEUTROPHILS % (AUTO) 63.9 % (42-78)
[2017-08-23 16:15] LABS: ANION GAP 10 (5-19); BLOOD UREA NITROGEN 13 mg/dL (7-20); CALCIUM 9.7 mg/dL (8.4-10.2); CARBON DIOXIDE 30 mmol/L (22-30); CHLORIDE 100 mmol/L (98-107); CREATININE RESULT 0.79 mg/dL (0.52-1.25); GLUCOSE 94 mg/dL (75-110); POTASSIUM 3.9 mmol/L (3.6-5.0); SODIUM 140.3 mmol/L (137-145)
--- NOTE | 2017-08-23 17:11 | RADIOLOGY REPORT (SQ) ---
EXAM DESCRIPTION: CHEST PA/LATERAL COMPLETED DATE/TIME: 08/23/2017 3:18 pm REASON FOR STUDY: PRE OP COMPARISON: 05/31/2017 EXAM PARAMETERS: NUMBER OF VIEWS: two views TECHNIQUE: Digital Frontal and Lateral radiographic views of the chest acquired. RADIATION DOSE: NA LIMITATIONS: none FINDINGS: LUNGS AND PLEURA: No opacities, masses or pneumothorax. No pleural effusion. MEDIASTINUM AND HILAR STRUCTURES: No masses or contour abnormalities. HEART AND VASCULAR STRUCTURES: Heart normal size. No evidence for failure. BONES: No acute findings. HARDWARE: None in the chest. OTHER: No other significant finding. IMPRESSION: NO SIGNIFICANT RADIOGRAPHIC FINDING IN THE CHEST. TECHNICAL DOCUMENTATION: JOB ID: [id number] [employer]- All Rights Reserved
--- NOTE | 2017-08-24 10:41 | EKG REPORT ---
SEVERITY:- NORMAL ECG - SINUS RHYTHM : Confirmed by: Deuce Crisostomo 24-Aug-2017 10:40:28
== END ==
LOC: OD 14:27
PROVIDERS: ATTEND Orthopaedic Surgery
DX: Z01.818 Encounter for other preprocedural examination (principal); M87.151 Osteonecrosis due to drugs, right femur
CPT/HCPCS: 36415; 71020; 80048; 81001; 85025; 93005; 93010

== ENCOUNTER → 2017-09-18 | Outpatient (CLI) | payer MEDICARE, MEDICAID ==
[2017-09-18 11:28] LABS: ABSOLUTE EOSINOPHILS # (AUTO) 0.2 10^3/uL (0.0-0.6); ABSOLUTE LYMPHOCYTES (AUTO) 1.2 10^3/uL (0.5-4.7); ABSOLUTE MONOCYTES (AUTO) 0.2 10^3/uL (0.1-1.4); ABSOLUTE NEUT (AUTO) 6.2 10^3/uL (1.7-8.2); BASOPHILS % (AUTO) 0.4 % (0-2); EOSINOPHILS % (AUTO) 3.1 % (0-6); HEMATOCRIT 35.3 % (36.0-47.0); HEMOGLOBIN 11.6 g/dL (12.0-15.5); HGB HCT DIFFERENCE -0.5; LYMPHOCYTES % (AUTO) 15.2 % (13-45); MEAN CORPUSCULAR HEMOGLOBIN 27.8 pg (27.0-33.4); MEAN CORPUSCULAR HGB CONC 32.8 g/dL (32.0-36.0); MEAN CORPUSCULAR VOLUME 85 fl (80-97); MONOCYTES % (AUTO) 2.7 % (3-13); RED BLOOD COUNT 4.17 10^6/uL (3.72-5.28); RED CELL DISTRIBUTION WIDTH 17.7 % (11.5-14.0); SEGMENTED NEUTROPHILS % (AUTO) 78.6 % (42-78); WHITE BLOOD COUNT 7.9 10^3/uL (4.0-10.5)
[2017-09-18 11:57] LABS: BLOOD UREA NITROGEN 16 mg/dL (7-20); CALCIUM 10.1 mg/dL (8.4-10.2); CARBON DIOXIDE 23 mmol/L (22-30); CREATININE RESULT 0.93 mg/dL (0.52-1.25); GLUCOSE 125 mg/dL (75-110); POTASSIUM 4.1 mmol/L (3.6-5.0)
[2017-09-18 12:12] LABS: CHLORIDE 101 mmol/L (98-107); SODIUM 143.6 mmol/L (137-145)
[2017-09-18 12:13] LABS: ANION GAP 19 (5-19)
== END ==
LOC: OD 09:38
PROVIDERS: ATTEND Orthopaedic Surgery
DX: Z01.818 Encounter for other preprocedural examination (principal)
CPT/HCPCS: 36415; 80048; 85025

== ENCOUNTER 2017-09-24 09:47 | Inpatient (IN) | payer MEDICARE, MEDICAID ==
[~2017-09-24 09:47] MED LIST changes: +BACITRACIN INJ 50,000 UNIT VIAL ONE; -BUPIVACAINE INJ/PF LIPOSOME/PF 266 MG/20 ML SDV INJ PRN; -CEFAZOLIN INJ 1 GM VIAL IV PRN; -IBUPROFEN 800 MG in NORMAL SALINE 250 ML IV PRN; -LACTATED RINGERS 1000 ML IV PRN; -LANSOPRAZOLE 15 MG TAB.RAP.DR PO PRN; -LIDOCAINE 0.5% INJ-PF (5 MG/ML) 50 ML SDV SUBCUT PRN; -OXYCODONE HCL SR 10 MG TABLET PO PRN; +THROMBIN (BOVINE) 5000 UNIT EPITAXIS KIT ONE; +THROMBIN (BOVINE) TOPICAL 20000 UNIT VIAL ONE; -VANCOMYCIN HCL 1,000 MG in DEXTROSE 5%-WATER 250 ML IV PRN
[2017-09-24] MEDS ORDERED: ALBUTEROL SULFATE 0.083% NEB 2.5 MG/3 ML AMPUL NEB ONE ×2 (10:50→12:15)
[2017-09-24 11:02] LABS: PROTHROMBIN TIME 13.1 SEC (11.4-15.4)
[2017-09-24 11:03] LABS: PARTIAL THROMBOPLASTIN TIME 31.7 SEC (23.5-35.8)
[2017-09-24] MEDS ORDERED: FENTANYL CITRATE INJ/PF 100 MCG/2 ML AMPUL ONE (11:16)
[2017-09-24] MEDS ORDERED: LIDOCAINE 2% INJ-PF (20 MG/ML) 10 ML AMPUL ONE (11:16)
[2017-09-24] MEDS ORDERED: ACETAMINOPHEN 100 ML IV ONE ×2 (11:17→19:05)
[2017-09-24] MEDS ORDERED: PROPOFOL INJ 200 MG/20 ML VIAL IV ONE (11:17)
[2017-09-24] MEDS ORDERED: ONDANSETRON HCL INJ/PF 4 MG/2 ML SDV ONE (11:17)
[2017-09-24] MEDS ORDERED: MIDAZOLAM 2 MG/2 ML INJ ONE (11:17)
[2017-09-24] MEDS ORDERED: HYDROMORPHONE HCL INJ/PF 2 MG/ML AMPULE ONE ×2 (11:17→13:31)
[2017-09-24] MEDS ORDERED: PROMETHAZINE HCL INJ 25 MG/1 ML VIAL IV PRN ×2 (11:58)
[2017-09-24] MEDS ORDERED: ONDANSETRON HCL INJ/PF 4 MG/2 ML SDV IV PRN (11:58)
[2017-09-24] MEDS ORDERED: DIPHENHYDRAMINE HCL 50 MG/ML VIAL IV PRN ×2 (11:58→13:05)
[2017-09-24] MEDS ORDERED: MEPERIDINE HCL/PF INJ 25 MG/1 ML DISP.SYRIN IV PRN (11:58)
[2017-09-24] MEDS ORDERED: FENTANYL CITRATE INJ/PF 100 MCG/2 ML AMPUL IV PRN ×3 (11:58)
--- NOTE | 2017-09-24 12:43 | Operative Report ---
Operative Report DATE OF SURGERY: 09/24/17 PREOPERATIVE DIAGNOSIS: Draining wound status post right hip arthroplasty OPERATION: Acetabular revision, I&D SURGEON: YAMILET WANG 1ST LICENSED LOAN OFFICER ASSISTANT: CELESTE COSTA ANESTHESIA: Spinal TISSUE REMOVED OR ALTERED: Cultures 2 to microbiology. Acetabular component to HELP DESK TEAM LEADER ESTIMATED BLOOD LOSS: 150 PROCEDURE: Patient in a left lateral decubitus position on the operating table the right lower extremity hunker prepped and draped in sterile fashion. A longitudinal incision is made in line with the previous surgical approach. Cultures are taken superficial to the iliotibial band. The iliotibial band is then divided. Subsequent cultures were taken deep. Wound is meticulously debrided. The hip is dislocated and the femoral head disimpacted. In the process of removing the acetabular liner there is movement of the acetabular shell. A decision was made to revise this rather than except a potentially loose implant. The acetabular shell was removed. This was a 52 mm PSL shell and hence a 53 mm reamer is now reamed to a depth that is appropriate. The wound is in pulse lavage irrigated with 3 L normal saline containing bacitracin. Subsequently a 54 mm hemispherical shell was impacted in position and secured with one screw. It appears to be very solid when tested using a clamp. A single screw was placed. Subsequent acetabular liner was impacted into the cup. A 36 mm chrome cobalt head -5 neck extension is impacted onto the trunnion. The hip was reduced. Is closed in layers with interrupted PDS followed by leola. Sterile compressive dressing was applied and the patient's return to the PACU in satisfactory condition.
[2017-09-24] MEDS: FENTANYL CITRATE INJ/PF 100 MCG/2 ML AMPUL ONE ×2 (13:00→13:05)
[2017-09-24] MEDS ORDERED: CYCLOBENZAPRINE HCL 10 MG TABLET PO PRN (13:02)
[2017-09-24] MEDS ORDERED: ALBUTEROL SULFATE HFA (90 MCG/PUFF) 8 GM MDI (1 MDI/ER DISP) IH PRN (13:02)
[2017-09-24] MEDS ORDERED: MORPHINE SULFATE 10 MG/ML INJ IV PRN ×3 (13:05)
[2017-09-24] MEDS ORDERED: ACETAMINOPHEN 325 MG TABLET PO PRN (13:05)
[2017-09-24] MEDS ORDERED: ONDANSETRON 4 MG TAB.RAPDIS PO PRN (13:05)
[2017-09-24] MEDS ORDERED: MAG HYDROX/AL HYDROX/SIMETH SUSP 30 ML UDCUP PO PRN (13:05)
[2017-09-24] MEDS ORDERED: RINGERS SOLUTION,LACTATED 1,000 ML IV PRN (13:05)
[2017-09-24] MEDS ORDERED: ZOLPIDEM TARTRATE 5 MG TABLET PO PRN (13:05)
[2017-09-24] MEDS ORDERED: MORPHINE SULFATE 10 MG/ML INJ IM PRN (13:05)
[2017-09-24] MEDS ORDERED: HYDROMORPHONE HCL INJ/PF 2 MG/ML AMPULE IV ONE (13:06)
[2017-09-24] MEDS ORDERED: IBUPROFEN INJ 800 MG/8 ML VIAL IV ONE (13:15)
[2017-09-24] MEDS ORDERED: ALBUTEROL SULFATE HFA (90 MCG/PUFF) 200 PUFF/8.5 GM MDI IH PRN (13:17)
[2017-09-24] MEDS ORDERED: SUCCINYLCHOLINE CHLORIDE INJ 200 MG/10 ML VIAL ONE (13:29)
--- NOTE | 2017-09-24 14:24 | RADIOLOGY REPORT (SQ) ---
EXAM DESCRIPTION: PELVIS AP COMPLETED DATE/TIME: 09/24/2017 1:59 pm REASON FOR STUDY: Post Op Long Cassette in PACU Z96.641 PRESENCE OF RIGHT ARTIFICIAL HIP JOINT COMPARISON: 08/27/2017 NUMBER OF VIEWS: One view TECHNIQUE: AP Pelvis LIMITATIONS: None. FINDINGS: An AP view show in the pelvis and proximal femurs an additional AP view of the right femur show a right hip arthroplasty good position. IMPRESSION: Right hip arthroplasty. TECHNICAL DOCUMENTATION: JOB ID: [id number] [employer]- All Rights Reserved
[2017-09-24] MEDS ORDERED: TRANEXAMIC ACID INJ/PF 1,000 MG/10 ML SDV IV ONE (15:00)
[2017-09-24] MEDS: OXYCODONE HCL IR 5 MG TABLET PO PRN (16:38)
[2017-09-24] MEDS: PREGABALIN 75 MG CAPSULE PO SCH (17:42)
[2017-09-24] MEDS: IBUPROFEN 800 MG in NORMAL SALINE 250 ML IV SCH (17:42)
[2017-09-24] MEDS: ONDANSETRON HCL INJ/PF 4 MG/2 ML SDV IV PRN (18:59)
[2017-09-24] MEDS: HYDROMORPHONE HCL INJ/PF 2 MG/ML AMPULE IV PRN (20:31)
[2017-09-24] MEDS: BUDESONIDE/FORMOTEROL 80-4.5 MCG 60 PUFF/6.9 GM MDI IH SCH (21:48)
[2017-09-24] MEDS: OXYCODONE HCL SR 10 MG TABLET PO SCH (21:48)
[2017-09-25] MEDS: HYDROMORPHONE HCL INJ/PF 2 MG/ML AMPULE IV PRN ×3 (00:44→12:04)
[2017-09-25] MEDS ORDERED: VANCOMYCIN HCL 1,000 MG in DEXTROSE 5%-WATER 250 ML IV ONE (01:05)
[2017-09-25] MEDS: IBUPROFEN 800 MG in NORMAL SALINE 250 ML IV SCH ×3 (03:28→18:14)
[2017-09-25] MEDS: LANSOPRAZOLE 30 MG TAB.RAP.DR PO SCH (05:02)
[2017-09-25 05:25] LABS: HEMATOCRIT 28.8 % (36.0-47.0); HEMOGLOBIN 9.3 g/dL (12.0-15.5); HGB HCT DIFFERENCE -0.9; MEAN CORPUSCULAR HEMOGLOBIN 27.2 pg (27.0-33.4); MEAN CORPUSCULAR HGB CONC 32.3 g/dL (32.0-36.0); MEAN CORPUSCULAR VOLUME 84 fl (80-97); RED BLOOD COUNT 3.41 10^6/uL (3.72-5.28); RED CELL DISTRIBUTION WIDTH 17.7 % (11.5-14.0); WHITE BLOOD COUNT 10.2 10^3/uL (4.0-10.5)
[2017-09-25] MEDS: ONDANSETRON HCL INJ/PF 4 MG/2 ML SDV IV PRN ×3 (05:33→18:18)
[2017-09-25 05:47] LABS: ANION GAP 10 (5-19); BLOOD UREA NITROGEN 11 mg/dL (7-20); CALCIUM 9.2 mg/dL (8.4-10.2); CARBON DIOXIDE 29 mmol/L (22-30); CHLORIDE 98 mmol/L (98-107); CREATININE RESULT 0.65 mg/dL (0.52-1.25); GLUCOSE 112 mg/dL (75-110); POTASSIUM 3.7 mmol/L (3.6-5.0); SODIUM 136.6 mmol/L (137-145)
[2017-09-25 06:12] LABS: ERYTHROCYTE SEDIMENTATION RATE 104 mm/hr (0-20)
--- NOTE | 2017-09-25 06:47 | PDOC PROGRESS REPORT ---
Subjective Progress Note for:: 09/25/17 Subjective:: Patient complaining of some discomfort Reason For Visit: Z96.641 PRESENCE OF RIGHT ARTIFICIAL HIP JOINT Physical Exam Vital Signs: Temp Pulse Resp BP Pulse Ox 37.2 C 116 H 18 128/48 H 95 09/25/17 04:02 09/25/17 04:02 09/25/17 04:02 09/25/17 04:02 09/25/17 04:02 Intake & Output 09/23/17 09/24/17 09/25/17 06:59 06:59 06:59 Intake Total 7497 Output Total 4750 Balance 2747 Weight 127.46 kg General appearance: PRESENT: mild distress Head exam: PRESENT: normocephalic Respiratory exam: PRESENT: unlabored Cardiovascular exam: PRESENT: RRR Pulses: PRESENT: +1 pedal pulses bilateral Vascular exam: PRESENT: normal capillary refill GI/Abdominal exam: PRESENT: soft Rectal exam: PRESENT: deferred Extremities exam: PRESENT: other - Leg lengths are equal. Distal neurovascular examination is intact. Dressing change secondary to bloody drainage. Neurological exam: PRESENT: alert, awake, oriented to person, oriented to place , oriented to time, oriented to situation. ABSENT: motor sensory deficit Psychiatric exam: PRESENT: appropriate affect, normal mood. ABSENT: homicidal ideation, suicidal ideation Skin exam: PRESENT: dry, intact, warm. ABSENT: cyanosis, rash Results Laboratory Results: 09/25/17 05:04 09/25/17 05:04 09/24/17 09/24/17 09/25/17 10:43 10:43 05:04 WBC 10.2 RBC 3.41 L Hgb 9.3 L Hct 28.8 L MCV 84 MCH 27.2 MCHC 32.3 RDW 17.7 H Plt Count 357 Sodium Potassium 3.8 Chloride Carbon Dioxide Anion Gap BUN Creatinine Est GFR ( Amer) Est GFR (Non-Af Amer) Glucose Calcium Serum HCG, Qual NEGATIVE 09/25/17 05:04 WBC RBC Hgb Hct MCV MCH MCHC RDW Plt Count Sodium 136.6 L Potassium 3.7 Chloride 98 Carbon Dioxide 29 Anion Gap 10 BUN 11 Creatinine 0.65 Est GFR ( Amer) > 60 Est GFR (Non-Af Amer) > 60 Glucose 112 H Calcium 9.2 Serum HCG, Qual Impressions: Pelvis X-Ray 09/24/17 13:07 IMPRESSION: Right hip arthroplasty. 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 Patient underwent an I&D which resulted in an acetabular revision. Intraoperative Gram stains suggest gram- positive cocci. Cultures are pending. Patient started on vancomycin with rifampin. PICC line requested. - Time Time Spent with patient: 15-24 minutes Anticipated discharge: Home with Homehealth Within: within 24 hours
[2017-09-25] MEDS: PREGABALIN 75 MG CAPSULE PO SCH ×2 (09:04→17:05)
[2017-09-25] MEDS: MULTIVITAMIN TABLET PO SCH (09:07)
[2017-09-25] MEDS: OXYCODONE HCL SR 10 MG TABLET PO SCH ×2 (09:08→21:48)
[2017-09-25] MEDS: ASCORBIC ACID 500 MG TABLET PO SCH (09:08)
[2017-09-25] MEDS: MELOXICAM 15 MG TABLET PO SCH (09:09)
[2017-09-25] MEDS: BUDESONIDE/FORMOTEROL 80-4.5 MCG 60 PUFF/6.9 GM MDI IH SCH ×2 (09:13→21:48)
[2017-09-25] MEDS: ASPIRIN 81 MG TABLET, ENT COATED PO SCH (09:15)
[2017-09-25] MEDS: MEDROXYPROGESTERONE ACET 10 MG TABLET PO SCH (09:15)
[2017-09-25] MEDS: HYDROCHLOROTHIAZIDE 25 MG TABLET PO SCH (09:15)
[2017-09-25] MEDS: RIFAMPIN 300 MG CAPSULE PO SCH ×2 (09:15→21:48)
[2017-09-25] MEDS ORDERED: OMEPRAZOLE MAGNESIUM PO SCH (10:00)
[2017-09-25] MEDS ORDERED: (PENDING PHARMACY ID) (Multivitamin [Multivitamins] 1 CAP) PO SCH (10:00)
[2017-09-25] MEDS ORDERED: LISINOPRIL 10 MG TABLET PO SCH (10:00)
[2017-09-25] MEDS ORDERED: VALACYCLOVIR HCL 500 MG TABLET PO SCH (10:00)
[2017-09-25] MEDS ORDERED: EMTRICITABINE/TENOFOVIR 200-300 MG TABLET PO SCH (10:00)
[2017-09-25] MEDS ORDERED: RITONAVIR 100 MG TABLET PO SCH (10:00)
[2017-09-25] MEDS ORDERED: (PENDING PHARMACY ID) (Atazanavir Sulfate [Reyataz 300 Mg Capsule] 300 MG) PO SCH (10:00)
[2017-09-25] MEDS ORDERED: VANCOMYCIN HCL 1,000 MG in DEXTROSE 5%-WATER 250 ML IV SCH (10:00)
[2017-09-25] MEDS ORDERED: ASCORBIC ACID PO SCH (10:00)
--- NOTE | 2017-09-25 11:12 | RADIOLOGY REPORT (SQ) ---
EXAM DESCRIPTION: PICC INSERTION; U/S GUIDE FOR VASCULAR ACCESS; FLUORO/CV PLACEMENT COMPLETED DATE/TIME: 09/25/2017 10:05 am REASON FOR STUDY: IV HOME ABX; IV ACCESS; IV ABX Z96.641 PRESENCE OF RIGHT ARTIFICIAL HIP JOINT COMPARISON: Chest film 08/23/2017 FLUOROSCOPY TIME: 38 seconds 1 digital chest images and 1 ultrasound image saved to PACS. TECHNIQUE: Fluoroscopic and ultrasound guided PICC placement. LIMITATIONS: None. PROCEDURE: After written consent and assessment were obtained, the patient was brought into the fluo roscopy room and place supine on the table. Ultrasound was used on the patient's left arm for PICC a ccess. The left arm was prepped and draped in a sterile fashion along with the ultrasound probe. The entry site was anesthetized with 2.5 mL of 1% lidocaine. A 21 gauge 7 cm needle was advanced through the skin and into the basilic vein under live ultrasound guidance. An ultrasound image was saved to PACS confirming access site. A .018 guide wire was then inserted through the needle and into the ascencion ous system. The needle was the removed and an 11 blade scalpel was used to make a 1cm skin incision. A 5 fr peel-away sheath was advanced over the wire and into the venous system. A measurement was the n made using the existing wire and live fluoroscopic guidance. The wire was then removed and the trim med. The PICC was advanced through the peel-away sheath and into the venous system. The peel-away she ath was removed and the catheter was adhered to the patients arm with a stat lock. The catheter was t hen aspirated and flushed and a sterile bandage was placed over the access site. A fluoroscopic spot image was saved to PACS confirming the catheter tip within the superior vena cava. IMPRESSION: SUCCESSFUL PLACEMENT OF A 5 FR DUAL LUMEN 43 CM PICC IN THE LEFT BASILIC VEIN. COMMENT: Patient medication list reviewed: Yes- Quality ID# 130:Eligible professional attests to doc umenting in the medical record they obtained, updated, or reviewed the patient's current medications. . Quality ID 145: Final reports for procedures using fluoroscopy that document radiation exposure jono fouzia, or exposure time and number of fluorographic images (if radiation exposure indices are not avail able) Quality ID #76: The patient was prepped and draped using maximum sterile barrier technique including cap, mask, sterile gown, sterile gloves, a large sterile sheet, hand hygiene, and 2% Chlorhexidine fo r cutaneous antisepsis. When ultrasound is used, sterile ultrasound techniques are followed requiring sterile gel and sterile probes. TECHNICAL DOCUMENTATION: JOB ID: [id number] [employer]- All Rights Reserved
[2017-09-25] MEDS: VANCOMYCIN HCL 1,500 MG in DEXTROSE 5%-WATER 250 ML IV SCH ×2 (12:59→19:13)
[2017-09-25] MEDS ORDERED: NORMAL SALINE 10 ML SDV (AFTER EACH USE) IV PRN (20:02)
[2017-09-25] MEDS: NORMAL SALINE 10 ML SDV (SCHEDULED) IV SCH (21:49)
[2017-09-26] MEDS: VANCOMYCIN HCL 1,500 MG in DEXTROSE 5%-WATER 250 ML IV SCH ×2 (01:38→09:42)
[2017-09-26] MEDS: IBUPROFEN 800 MG in NORMAL SALINE 250 ML IV SCH ×2 (01:38→11:54)
[2017-09-26] MEDS: OXYCODONE HCL IR 5 MG TABLET PO PRN ×2 (04:47→11:23)
[2017-09-26] MEDS: LANSOPRAZOLE 30 MG TAB.RAP.DR PO SCH (05:28)
[2017-09-26 06:33] LABS: HEMATOCRIT 23.1 % (36.0-47.0); HGB HCT DIFFERENCE -0.3; MEAN CORPUSCULAR HEMOGLOBIN 27.4 pg (27.0-33.4); MEAN CORPUSCULAR HGB CONC 32.8 g/dL (32.0-36.0); MEAN CORPUSCULAR VOLUME 84 fl (80-97); RED BLOOD COUNT 2.77 10^6/uL (3.72-5.28); RED CELL DISTRIBUTION WIDTH 17.7 % (11.5-14.0); WHITE BLOOD COUNT 9.5 10^3/uL (4.0-10.5)
[2017-09-26 06:36] LABS: HEMOGLOBIN 7.6 g/dL (12.0-15.5)
[2017-09-26] MEDS: MULTIVITAMIN TABLET PO SCH (09:27)
[2017-09-26] MEDS: OXYCODONE HCL SR 10 MG TABLET PO SCH (09:28)
[2017-09-26] MEDS: PREGABALIN 75 MG CAPSULE PO SCH (09:28)
[2017-09-26] MEDS: ASCORBIC ACID 500 MG TABLET PO SCH (09:28)
[2017-09-26] MEDS: RIFAMPIN 300 MG CAPSULE PO SCH (09:29)
[2017-09-26] MEDS: BUDESONIDE/FORMOTEROL 80-4.5 MCG 60 PUFF/6.9 GM MDI IH SCH (09:42)
[2017-09-26] MEDS: NORMAL SALINE 10 ML SDV (SCHEDULED) IV SCH (09:42)
[2017-09-26] MEDS: MEDROXYPROGESTERONE ACET 10 MG TABLET PO SCH (09:43)
[2017-09-26] MEDS: MELOXICAM 15 MG TABLET PO SCH (09:43)
[2017-09-26] MEDS: HYDROCHLOROTHIAZIDE 25 MG TABLET PO SCH (09:43)
[2017-09-26] MEDS: ASPIRIN 81 MG TABLET, ENT COATED PO SCH (09:43)
--- NOTE | 2017-09-26 11:40 | PDOC DISCHARGE SUMMARY ---
General - Admit/Disc Date/PCP Admission Date/Primary Care Provider: 09/24/17 09:47 RIVERVIEW FRAZIER, [facility] [facility] Discharge Date: 09/26/17 - Additional Information Discharge Diet: As Tolerated, Regular Discharge Activity: Activity As Tolerated, Balance Activity w/Rest, No Driving, No tub bath Home Medications: Albuterol Sulfate [Ventolin HFA MDI 18 GM] 2 puff IH Q6HP PRN 06/20/17 Atazanavir Sulfate [Reyataz 300 mg Capsule] 300 mg PO DAILY 06/20/17 Budesonide/Formoterol Fumarate [Symbicort HFA 80-4.5 mcg Inhaler 6.9 gm] 2 puff IH Q12 06/20/17 Buprenorphine [Butrans] 10 mcg TP CARLOS@1000 06/20/17 Cyclobenzaprine HCl [Flexeril 10 mg Tablet] 10 mg PO Q12HP PRN 06/20/17 Emtricitabine/Tenofovir (Tdf) [Truvada 200 mg-300 mg Tablet] 1 tab PO DAILY Hydrochlorothiazide [Hydrodiuril 25 mg Tablet] 25 mg PO DAILY 06/20/17 Lisinopril [Prinivil 40 mg Tablet] 40 mg PO DAILY 06/20/17 Meloxicam [Mobic 15 mg Tablet] 15 mg PO DAILY 06/20/17 Ritonavir [Norvir] 100 mg PO DAILY 06/20/17 Valacyclovir HCl [Valacyclovir] 500 mg PO DAILY 06/20/17 Ascorbic Acid [Vitamin C] 1 tab PO DAILY 08/24/17 Ibuprofen 800 mg PO Q8HP PRN 08/24/17 Multivitamin [Multivitamins] 1 cap PO DAILY 08/24/17 Omeprazole Magnesium [Prilosec Otc] 2 tab PO DAILY 08/24/17 Medroxyprogesterone Acet [Provera 10 mg Tablet] 10 mg PO DAILY 08/27/17 Rivaroxaban [Xarelto 10 mg Tablet] 10 mg PO QHS tablet 08/29/17 Aspirin [Ecotrin 81 mg EC Tablet] 81 mg PO DAILY tabec 09/26/17 Oxycodone HCl [Oxy-Ir 5 mg Tablet] 5 mg PO Q6HP PRN tablet 09/26/17 Rifampin [Rifadin 300 mg Capsule] 300 mg PO Q12 capsule 09/26/17 History of Present Illness History of Present Illness: EILEEN TAPIA is a 47 year old female who is HIV positive and on retroviral inhibitors who presented with progressive right hip pain and functional disability secondary to a drug-induced avascular necrosis. The patient elects to undergo a right hip arthroplasty to alleviate the pain and functional disability. Hospital Course Hospital Course: The patient is admitted through the operating room where she undergoes an I&D of her right hip arthroplasty. It is complicated by the movement of the underlying acetabular component which was subsequently replaced. She is returned to the floor in satisfactory condition. There is some initial pain issues that seem to resolve with time. He continues to be wound drainage with resulting in dressing changes. Intraoperative cultures are growing gram- positive cocci and cultures sensitivity unknown at this point. Is also gram- negative marina. Since is started empirically on vancomycin and rifampin. Physical Exam Vital Signs: Temp Pulse Resp BP Pulse Ox 37.2 C 100 18 98/62 L 96 09/26/17 08:00 09/26/17 08:00 09/26/17 08:00 09/26/17 08:00 09/26/17 08:00 Intake & Output 09/25/17 09/26/17 09/27/17 06:59 06:59 06:59 Intake Total 7497 2669 Output Total 4750 Balance 2747 2669 Weight 127.46 kg 127.46 kg General appearance: PRESENT: mild distress, obese Head exam: PRESENT: normocephalic Respiratory exam: PRESENT: unlabored Cardiovascular exam: PRESENT: RRR Pulses: PRESENT: +1 pedal pulses bilateral Vascular exam: PRESENT: normal capillary refill GI/Abdominal exam: PRESENT: soft Rectal exam: PRESENT: deferred Extremities exam: PRESENT: other - Right hip wound is well approximated. There is serosanguineous drainage present. Leg lengths are equal. Distal neurovascular examination is intact. Neurological exam: PRESENT: alert, awake, oriented to person, oriented to place , oriented to time, oriented to situation. ABSENT: motor sensory deficit Psychiatric exam: PRESENT: appropriate affect, normal mood. ABSENT: homicidal ideation, suicidal ideation Skin exam: PRESENT: dry, intact, warm. ABSENT: cyanosis, rash Results Laboratory Results: 09/26/17 05:30 09/25/17 05:04 09/26/17 05:30 WBC 9.5 RBC 2.77 L Hgb 7.6 L Hct 23.1 L MCV 84 MCH 27.4 MCHC 32.8 RDW 17.7 H Plt Count 307 09/24/17 11:57 Hip - Deep Wound Gram Stain - Final 09/24/17 11:57 Hip - Superficial Gram Stain - Final Impressions: Pelvis X-Ray 09/24/17 13:07 IMPRESSION: Right hip arthroplasty. Guidance Fluoroscopy 09/25/17 00:00 IMPRESSION: SUCCESSFUL PLACEMENT OF A 5 FR DUAL LUMEN 43 CM PICC IN THE LEFT BASILIC VEIN. Interventional Vascular Procedure 09/25/17 00:00 IMPRESSION: SUCCESSFUL PLACEMENT OF A 5 FR DUAL LUMEN 43 CM PICC IN THE LEFT BASILIC VEIN. PICC Line Insertion 09/25/17 00:00 IMPRESSION: SUCCESSFUL PLACEMENT OF A 5 FR DUAL LUMEN 43 CM PICC IN THE LEFT BASILIC VEIN. Status: Imported from PACS Plan Discharge Plan: Patient to be discharged home with home health nursing, home health physical therapy, wheeled walker, bedside commode. Amatory function is weightbearing as tolerated. Visiting nurse service can administer antibiotics as well as change the right hip dressing as needed. Anticipate 6 weeks of IV vancomycin and oral rifampin therapy. This may be modified depending microbiology sensitivities. Follow-up will be with Dr. Calzada in the [facility] for surgery in 2 weeks for staple removal.
[2017-09-26 12:12] VITALS: BP 106/69
[2017-09-26] MEDS ORDERED: LISINOPRIL 10 MG TABLET PO SCH (22:00)
[2017-09-26] MEDS ORDERED: RITONAVIR 100 MG TABLET PO SCH (22:00)
[2017-09-26] MEDS ORDERED: EMTRICITABINE/TENOFOVIR 200-300 MG TABLET PO SCH (22:00)
[2017-09-26] MEDS ORDERED: VALACYCLOVIR HCL 500 MG TABLET PO SCH (22:00)
[2017-09-30] MEDS ORDERED: BUPRENORPHINE 10 MCG TP SCH (10:00)
== END 2017-09-26 17:00 | disposition home health service (06) | DRG 970 ==
LOC: INOR 09:47 → 4S 14:28
PROVIDERS: ADMIT Orthopaedic Surgery; ATTEND Orthopaedic Surgery
PROC: 0SPA0JZ Removal of Synthetic Substitute from Right Hip Joint, Acetabular Surface, Open Approach (ICD-10-PCS; 2017-09-24)
PROC: 0SRA01A Replacement of Right Hip Joint, Acetabular Surface with Metal Synthetic Substitute, Uncemented, Open Approach (ICD-10-PCS; principal; 2017-09-24 12:00)
PROC: 02HV33Z Insertion of Infusion Device into Superior Vena Cava, Percutaneous Approach (ICD-10-PCS; 2017-09-25)
PROC: B518ZZA Fluoroscopy of Superior Vena Cava, Guidance (ICD-10-PCS; 2017-09-25)
DX: B20 Human immunodeficiency virus [HIV] disease (principal); M87.151 Osteonecrosis due to drugs, right femur; M90.551 Osteonecrosis in diseases classified elsewhere, right thigh; T37.5X5A Adverse effect of antiviral drugs, initial encounter; F17.210 Nicotine dependence, cigarettes, uncomplicated; K21.9 Gastro-esophageal reflux disease without esophagitis; I10 Essential (primary) hypertension; Z96.653 Presence of artificial knee joint, bilateral; Z96.641 Presence of right artificial hip joint; Z79.899 Other long term (current) drug therapy
CPT/HCPCS: 01215; 36415; 36569; 72170; 76937; 77001; 80048; 84132; 84703; 85027; 85610; 85652; 85730; 86141; 87070; 87075; 87077; 87186; 87205; 94799; C1713; G8978-GP; G8979-GP; G8987-GO; G8988-GO; J0131; J0330; J1170; J1642; J1741; J2250; J2405; J2704; J3010; J3370; J3490; J7050; J7060; J7120; S0119

== ENCOUNTER 2018-01-02 06:00 | Day surgery (SDC) | payer MEDICARE, MEDICAID ==
[2017-12-28 10:07] LABS: APPEARANCE,URINE SLIGHTLY-CLOUDY; BILIRUBIN,URINE NEGATIVE (NEGATIVE); GLUCOSE, URINE NEGATIVE (NEGATIVE); KETONES,URINE NEGATIVE (NEGATIVE); LEUKOCYTE ESTERASE,URINE NEGATIVE (NEGATIVE); NITRITE,URINE NEGATIVE (NEGATIVE); PROTEIN,URINE NEGATIVE (NEGATIVE); URINE SPECIFIC GRAVITY 1.021; UROBILINOGEN,URINE NEGATIVE mg/dL (<2.0)
[2017-12-28 10:09] LABS: ABSOLUTE BASOPHILS # (AUTO) 0.1 10^3/uL (0.0-0.2); ABSOLUTE EOSINOPHILS # (AUTO) 0.4 10^3/uL (0.0-0.6); ABSOLUTE LYMPHOCYTES (AUTO) 1.4 10^3/uL (0.5-4.7); ABSOLUTE MONOCYTES (AUTO) 0.6 10^3/uL (0.1-1.4); ABSOLUTE NEUT (AUTO) 5.2 10^3/uL (1.7-8.2); EOSINOPHILS % (AUTO) 5.3 % (0-6); HEMATOCRIT 34.5 % (36.0-47.0); HEMOGLOBIN 10.8 g/dL (12.0-15.5); LYMPHOCYTES % (AUTO) 18.5 % (13-45); MEAN CORPUSCULAR HEMOGLOBIN 23.9 pg (27.0-33.4); MEAN CORPUSCULAR HGB CONC 31.4 g/dL (32.0-36.0); MEAN CORPUSCULAR VOLUME 76 fl (80-97); PLATELET COUNT 317 10^3/uL (150-450); RED BLOOD COUNT 4.54 10^6/uL (3.72-5.28); RED CELL DISTRIBUTION WIDTH 18.5 % (11.5-14.0); SEGMENTED NEUTROPHILS % (AUTO) 67.2 % (42-78); TOTAL CELLS COUNTED % (AUTO) 100 %; WHITE BLOOD COUNT 7.7 10^3/uL (4.0-10.5)
[2017-12-28 10:09] LABS: COLOR,URINE YELLOW
[2017-12-28 10:47] LABS: ANION GAP 13 (5-19); BLOOD UREA NITROGEN 13 mg/dL (7-20); CALCIUM 10.4 mg/dL (8.4-10.2); CARBON DIOXIDE 25 mmol/L (22-30); CHLORIDE 103 mmol/L (98-107); GLUCOSE 97 mg/dL (75-110); POTASSIUM 3.8 mmol/L (3.6-5.0); SODIUM 140.5 mmol/L (137-145)
--- NOTE | 2017-12-28 12:48 | RADIOLOGY REPORT (SQ) ---
EXAM DESCRIPTION: CHEST PA/LATERAL COMPLETED DATE/TIME: 12/28/2017 9:45 am REASON FOR STUDY: PRE OP COMPARISON: July 2017 EXAM PARAMETERS: NUMBER OF VIEWS: two views TECHNIQUE: Digital Frontal and Lateral radiographic views of the chest acquired. RADIATION DOSE: NA LIMITATIONS: none FINDINGS: LUNGS AND PLEURA: No opacities, masses or pneumothorax. No pleural effusion. MEDIASTINUM AND HILAR STRUCTURES: No masses or contour abnormalities. HEART AND VASCULAR STRUCTURES: Heart normal size. No evidence for failure. BONES: No acute findings. HARDWARE: None in the chest. OTHER: No other significant finding. IMPRESSION: NO SIGNIFICANT RADIOGRAPHIC FINDING IN THE CHEST. TECHNICAL DOCUMENTATION: JOB ID: [id number] [employer]- All Rights Reserved Reading location - IP/workstation name: [email or web address]
--- NOTE | 2017-12-28 14:48 | EKG REPORT ---
SEVERITY:- NORMAL ECG - SINUS RHYTHM : Confirmed by: Edgar Mcdonald MD 28-Dec-2017 14:48:06
[~2018-01-02 06:00] MED LIST changes: -BACITRACIN INJ 50,000 UNIT VIAL ONE; +CEFAZOLIN 2 GM/D5W RTU 2 GM/50 ML RTUPB IV PRN; +LACTATED RINGERS 1000 ML IV PRN; +LIDOCAINE 0.5% INJ-PF (5 MG/ML) 50 ML SDV SUBCUT PRN; -THROMBIN (BOVINE) 5000 UNIT EPITAXIS KIT ONE; -THROMBIN (BOVINE) TOPICAL 20000 UNIT VIAL ONE
[2018-01-02] MEDS ORDERED: ALBUTEROL SULFATE 0.083% NEB 2.5 MG/3 ML AMPUL NEB ONE (06:36)
[2018-01-02] MEDS ORDERED: LIDOCAINE 2% INJ-PF (20 MG/ML) 10 ML AMPUL ONE (08:09)
[2018-01-02] MEDS ORDERED: MIDAZOLAM 2 MG/2 ML INJ ONE ×2 (08:09→08:38)
[2018-01-02] MEDS ORDERED: PROPOFOL INJ 200 MG/20 ML VIAL IV ONE (08:09)
[2018-01-02] MEDS ORDERED: FENTANYL CITRATE INJ/PF 100 MCG/2 ML AMPUL ONE ×2 (08:09→08:38)
[2018-01-02] MEDS ORDERED: ACETAMINOPHEN 100 ML IV ONE (08:10)
[2018-01-02] MEDS ORDERED: LIDOCAINE 1%/EPINEPHRINE INJ 20 ML VIAL ONE (08:17)
[2018-01-02] MEDS ORDERED: BUPIVACAINE HCL 0.5 % INJ/PF 30 ML SDV ONE (08:17)
[2018-01-02] MEDS ORDERED: DEXMEDETOMIDINE INJ 80 MCG/20 ML VIAL IV ONE (08:38)
--- NOTE | 2018-01-02 08:47 | Operative Report ---
Operative Report DATE OF SURGERY: 01/02/18 PREOPERATIVE DIAGNOSIS: Avascular necrosis left femoral head OPERATION: Core decompression left femoral head SURGEON: YAMILET WANG ANESTHESIA: LMAC TISSUE REMOVED OR ALTERED: None ESTIMATED BLOOD LOSS: Minimal PROCEDURE: The patient supine on the fracture table the left lower extremity and hindquarter prepped and draped in sterile fashion. Under fluoroscopic guidance a pin for the [employer] 6.5 cannulated system is advanced percutaneously up into the superior aspect of the femoral head. A core is then created using a 4.9 cannulated drill. Its position is checked fluoroscopically in 2 dimensions and felt to be adequate. The pin in the drill are removed. The skin is reapproximated interrupted leola. A sterile dressing is applied. The patient 's return to PACU in satisfactory condition.
[2018-01-02] MEDS: FENTANYL CITRATE INJ/PF 100 MCG/2 ML AMPUL ONE ×2 (09:00→09:05)
[2018-01-02] MEDS ORDERED: ONDANSETRON HCL INJ/PF 4 MG/2 ML SDV IV PRN (09:02)
[2018-01-02] MEDS ORDERED: DIPHENHYDRAMINE HCL 50 MG/ML VIAL IV PRN (09:02)
[2018-01-02] MEDS ORDERED: PROMETHAZINE HCL INJ 25 MG/1 ML VIAL IV PRN ×2 (09:02)
[2018-01-02] MEDS ORDERED: MEPERIDINE HCL/PF INJ 25 MG/1 ML DISP.SYRIN IV PRN (09:02)
[2018-01-02] MEDS ORDERED: FENTANYL CITRATE INJ/PF 100 MCG/2 ML AMPUL IV PRN ×3 (09:02)
[2018-01-02] MEDS ORDERED: OXYCODONE HCL IR 5 MG TABLET PO PRN (09:19)
[2018-01-02] MEDS ORDERED: ONDANSETRON 4 MG TAB.RAPDIS PO PRN (09:19)
[2018-01-02] MEDS ORDERED: OXYCODONE HCL IR 5 MG TABLET ONE (09:42)
[2018-01-02 10:53] VITALS: BP 158/92
--- NOTE | 2018-01-02 12:28 | RADIOLOGY REPORT (SQ) ---
EXAM DESCRIPTION: NO CHG FLUORO; HIP IN OPERATING RM COMPLETED DATE/TIME: 01/02/2018 10:30 am REASON FOR STUDY: LEFT HIP DECOMPRESSION ASST WITH FLUORO IN OR M87.152 OSTEONECROSIS DUE TO DRUGS, LEFT FEMUR COMPARISON: None. FLUOROSCOPY TIME: 0.4 minutes. 5 images saved to PACS. TECHNIQUE: Intra-operative images acquired during surgical procedure to evaluate progress. NUMBER OF IMAGES: 5 images. LIMITATIONS: None. FINDINGS: Images of the hip acquired during procedure. IMPRESSION: IMAGE(S) OBTAINED DURING PROCEDURE. COMMENT: Quality ID 145: Final reports for procedures using fluoroscopy that document radiation exp osure indices, or exposure time and number of fluorographic images (if radiation exposure indices are not available) Please consult full operative report of the attending physician for description of the procedure. TECHNICAL DOCUMENTATION: JOB ID: [id number] [employer]- All Rights Reserved Reading location - IP/workstation name: [email or web address]
--- NOTE | 2018-01-02 12:28 | RADIOLOGY REPORT (SQ) ---
EXAM DESCRIPTION: NO CHG FLUORO; HIP IN OPERATING RM COMPLETED DATE/TIME: 01/02/2018 10:30 am REASON FOR STUDY: LEFT HIP DECOMPRESSION ASST WITH FLUORO IN OR M87.152 OSTEONECROSIS DUE TO DRUGS, LEFT FEMUR COMPARISON: None. FLUOROSCOPY TIME: 0.4 minutes. 5 images saved to PACS. TECHNIQUE: Intra-operative images acquired during surgical procedure to evaluate progress. NUMBER OF IMAGES: 5 images. LIMITATIONS: None. FINDINGS: Images of the hip acquired during procedure. IMPRESSION: IMAGE(S) OBTAINED DURING PROCEDURE. COMMENT: Quality ID 145: Final reports for procedures using fluoroscopy that document radiation exp osure indices, or exposure time and number of fluorographic images (if radiation exposure indices are not available) Please consult full operative report of the attending physician for description of the procedure. TECHNICAL DOCUMENTATION: JOB ID: [id number] [employer]- All Rights Reserved Reading location - IP/workstation name: [email or web address]
== END 2018-01-02 10:40 | disposition home or self-care (01) ==
LOC: OROUT 06:00
PROVIDERS: ATTEND Orthopaedic Surgery
PROC: 0QB70ZZ Excision of Left Upper Femur, Open Approach (ICD-10-PCS; principal; 2018-01-02 08:15)
DX: M87.152 Osteonecrosis due to drugs, left femur (principal); I10 Essential (primary) hypertension; K21.9 Gastro-esophageal reflux disease without esophagitis; F17.210 Nicotine dependence, cigarettes, uncomplicated; Z79.01 Long term (current) use of anticoagulants; Z79.51 Long term (current) use of inhaled steroids; Z79.899 Other long term (current) drug therapy; Z88.5 Allergy status to narcotic agent; J44.9 Chronic obstructive pulmonary disease, unspecified; I25.2 Old myocardial infarction; Z88.1 Allergy status to other antibiotic agents; E66.9 Obesity, unspecified; Z68.39 Body mass index [BMI] 39.0-39.9, adult
CPT/HCPCS: 01220; 36415; 71046; 80048; 81001; 81025; 84132; 85025; 93005; 93010; 94640; J0131; J0690; J2250; J2704; J3010; J3490

== ENCOUNTER → 2018-04-18 | Outpatient (CLI) | payer MEDICARE, MEDICAID ==
--- NOTE | 2018-04-18 12:00 | RADIOLOGY REPORT (SQ) ---
EXAM DESCRIPTION: CHEST PA/LATERAL COMPLETED DATE/TIME: 04/18/2018 11:40 am REASON FOR STUDY: PRE-OP COMPARISON: 12/28/2017, 08/23/2017 NUMBER OF VIEWS: Two view. TECHNIQUE: Frontal and lateral radiographic views of the chest acquired. LIMITATIONS: None. FINDINGS: LUNGS AND PLEURA: No opacities, masses or pneumothorax. No pleural effusion. Attenuated bl ood vessels and flattened tiburcio-diaphragms. MEDIASTINUM AND HILAR STRUCTURES: No masses. No contour abnormalities. HEART AND VASCULAR STRUCTURES: Heart normal in size and contour. No evidence for failure. BONES: No acute findings. HARDWARE: None in the chest. OTHER: No other significant finding. IMPRESSION: COPD. NO ACUTE RADIOGRAPHIC FINDING IN THE CHEST. TECHNICAL DOCUMENTATION: JOB ID: [id number] [employer]- All Rights Reserved Reading location - IP/workstation name: [email or web address]
[2018-04-18 12:05] LABS: ABSOLUTE BASOPHILS # (AUTO) 0.1 10^3/uL (0.0-0.2); ABSOLUTE EOSINOPHILS # (AUTO) 0.3 10^3/uL (0.0-0.6); ABSOLUTE LYMPHOCYTES (AUTO) 1.5 10^3/uL (0.5-4.7); ABSOLUTE MONOCYTES (AUTO) 0.7 10^3/uL (0.1-1.4); BASOPHILS % (AUTO) 0.9 % (0-2); EOSINOPHILS % (AUTO) 4.4 % (0-6); HEMATOCRIT 42.9 % (36.0-47.0); HEMOGLOBIN 14.2 g/dL (12.0-15.5); LYMPHOCYTES % (AUTO) 19.7 % (13-45); MEAN CORPUSCULAR HEMOGLOBIN 28.1 pg (27.0-33.4); MEAN CORPUSCULAR VOLUME 85 fl (80-97); MONOCYTES % (AUTO) 8.7 % (3-13); PLATELET COUNT 257 10^3/uL (150-450); RED BLOOD COUNT 5.05 10^6/uL (3.72-5.28); RED CELL DISTRIBUTION WIDTH 19.8 % (11.5-14.0); SEGMENTED NEUTROPHILS % (AUTO) 66.3 % (42-78); TOTAL CELLS COUNTED % (AUTO) 100 %; WHITE BLOOD COUNT 7.5 10^3/uL (4.0-10.5)
[2018-04-18 12:14] LABS: APPEARANCE,URINE SLIGHTLY-CLOUDY; BILIRUBIN,URINE NEGATIVE (NEGATIVE); COLOR,URINE YELLOW; GLUCOSE, URINE NEGATIVE (NEGATIVE); KETONES,URINE NEGATIVE (NEGATIVE); LEUKOCYTE ESTERASE,URINE NEGATIVE (NEGATIVE); NITRITE,URINE NEGATIVE (NEGATIVE); PROTEIN,URINE NEGATIVE (NEGATIVE); URINE SPECIFIC GRAVITY 1.011; UROBILINOGEN,URINE NEGATIVE mg/dL (<2.0)
[2018-04-18 12:31] LABS: ANION GAP 13 (5-19); BLOOD UREA NITROGEN 12 mg/dL (7-20); CALCIUM 10.4 mg/dL (8.4-10.2); CARBON DIOXIDE 26 mmol/L (22-30); CHLORIDE 104 mmol/L (98-107); GLUCOSE 100 mg/dL (75-110); POTASSIUM 3.8 mmol/L (3.6-5.0); SODIUM 143.2 mmol/L (137-145)
--- NOTE | 2018-04-18 23:02 | EKG REPORT ---
SEVERITY:- NORMAL ECG - SINUS RHYTHM : Confirmed by: Deuce Crisostomo 18-Apr-2018 23:01:40
== END ==
LOC: OD 10:42
PROVIDERS: ATTEND Orthopaedic Surgery
DX: Z01.810 Encounter for preprocedural cardiovascular examination (principal); Z01.812 Encounter for preprocedural laboratory examination; Z01.818 Encounter for other preprocedural examination; J44.9 Chronic obstructive pulmonary disease, unspecified
CPT/HCPCS: 36415; 71046; 80048; 81001; 85025; 93005; 93010

== ENCOUNTER 2018-05-06 10:00 | Inpatient (IN) | payer MEDICARE, MEDICAID ==
[~2018-05-06 10:00] MED LIST changes: -CEFAZOLIN 2 GM/D5W RTU 2 GM/50 ML RTUPB IV PRN; -LACTATED RINGERS 1000 ML IV PRN
[2018-05-06] MEDS ORDERED: CEFAZOLIN 2 GM/D5W RTU 2 GM/50 ML RTUPB IV ONE (11:23)
[2018-05-06] MEDS ORDERED: IBUPROFEN 800 MG in NORMAL SALINE 250 ML IV ONE (11:30)
[2018-05-06] MEDS ORDERED: FENTANYL CITRATE INJ/PF 250 MCG/5 ML AMPULE ONE ×2 (11:33→13:07)
[2018-05-06] MEDS ORDERED: FENTANYL CITRATE INJ/PF 100 MCG/2 ML AMPUL ONE (11:34)
[2018-05-06] MEDS ORDERED: MIDAZOLAM 2 MG/2 ML INJ ONE (11:34)
[2018-05-06] MEDS ORDERED: PROPOFOL INJ 200 MG/20 ML VIAL IV ONE (11:34)
[2018-05-06] MEDS ORDERED: MORPHINE SULFATE 10 MG/ML INJ ONE (11:35)
[2018-05-06] MEDS ORDERED: BUPIVACAINE HCL/DEX-WATER/PF 15 MG/2 ML AMPULE ONE (11:36)
[2018-05-06] MEDS: OXYCODONE HCL SR 10 MG TABLET PO ONE ×2 (11:40→17:01)
[2018-05-06] MEDS: LANSOPRAZOLE 15 MG TAB.RAP.DR PO ONE ×2 (11:40→17:01)
[2018-05-06] MEDS ORDERED: THROMBIN (BOVINE) TOPICAL 20000 UNIT VIAL ONE (11:43)
[2018-05-06] MEDS ORDERED: BUPIVACAINE INJ/PF LIPOSOME/PF 266 MG/20 ML SDV ONE (11:43)
[2018-05-06] MEDS ORDERED: THROMBIN (BOVINE) 5000 UNIT EPITAXIS KIT ONE (11:43)
[2018-05-06] MEDS ORDERED: TRANEXAMIC ACID INJ/PF 1,000 MG/10 ML SDV IV ONE ×2 (12:00→18:30)
[2018-05-06] MEDS ORDERED: TOBRAMYCIN SULFATE INJ 1.2 GM PWDR VIAL MC ONE (13:00)
[2018-05-06] MEDS ORDERED: PROMETHAZINE HCL INJ 25 MG/1 ML VIAL IV PRN (13:20)
[2018-05-06] MEDS ORDERED: FENTANYL CITRATE INJ/PF 100 MCG/2 ML AMPUL IV PRN ×3 (13:20)
[2018-05-06] MEDS ORDERED: DIPHENHYDRAMINE HCL 50 MG/ML VIAL IV PRN ×2 (13:20→13:22)
[2018-05-06] MEDS ORDERED: ALBUTEROL SULFATE HFA (90 MCG/PUFF) 8 GM MDI (1 MDI/ER DISP) IH PRN (13:21)
[2018-05-06] MEDS ORDERED: CYCLOBENZAPRINE HCL 10 MG TABLET PO PRN (13:21)
--- NOTE | 2018-05-06 13:21 | Operative Report ---
Operative Report DATE OF SURGERY: 05/06/18 PREOPERATIVE DIAGNOSIS: Left femoral head avascular necrosis status post core decompression OPERATION: Left hip conversion arthroplasty. Sciatic neural lysis SURGEON: YAMILET WANG ANESTHESIA: Spinal TISSUE REMOVED OR ALTERED: Femoral head to pathology COMPLICATIONS: None ESTIMATED BLOOD LOSS: 150 PROCEDURE: Implants used: Femur: Amber Accolade 2 size 5 stem Acetabular shell: 52 mm hemispherical shell Liner: 36 mm flat cross-link polyethylene liner Head: 36 mm chrome cobalt head -5 neck OsteoSet pellets containing tobramycin The patient is placed in a right lateral decubitus position on the operating table. The left lower extremity and hindquarter is prepped and draped in a sterile fashion. A curvilinear incision was made over the greater trochanter a posterior approach the hip was taken. The sciatic nerve is identified in the sciatic notch and traced down to the gluteal sling protected throughout its course. The femoral head is dislocated and the femoral neck transected using an oscillating saw. Attention was next turned to the acetabulum. Soft tissues cleared off the acetabulum using electrocautery. The acetabulum was then prepared using a series of hemispherical reamers until a 52 millimeters reamer is seated. Subsequently a 52 millimeters Amber titanium hemispherical shell is impacted into position and secured with one screw. A standard flat 36 millimeters cross- link liner is impacted into the shell. Attention was next turned to the femur. Access is gained to the femoral canal using a box osteotome to the piriformis fossa. The femur is then prepared using a series of broaches until a number 5 broach is seated. A trial reduction was now performed using a 36 millimeters head with -5 neck. Preoperative leg length was recreated and is excellent anterior posterior stability. A decision was made to proceed with the above construct. All trial implants were removed. The wound is irrigated with pulsed lavage. A number 5 stem is impacted into the femoral canal. A trial reduction was again performed with a 36 mm head and a -5 neck. Findings as previously. The hip was dislocated one last time and the final chrome-cobalt head is impacted onto the trunnion. The hip was reduced. Wound is copiously irrigated with pulsed lavage. OsteoSet pellets are created using tobramycin. These were introduced into the joint space. The posterior capsule was repaired over the top of the pellets. The remainder of the wound is closed in layers using interrupted Vicryl followed by leola. A sterile dressing is applied and the patient's returned to recovery room in satisfactory patient.
[2018-05-06] MEDS ORDERED: ONDANSETRON HCL INJ/PF 4 MG/2 ML SDV IV PRN (13:22)
[2018-05-06] MEDS ORDERED: MAG HYDROX/AL HYDROX/SIMETH SUSP 30 ML UDCUP PO PRN (13:22)
[2018-05-06] MEDS ORDERED: ZOLPIDEM TARTRATE 5 MG TABLET PO PRN (13:22)
[2018-05-06] MEDS ORDERED: RINGERS SOLUTION,LACTATED 1,000 ML IV PRN (13:22)
[2018-05-06] MEDS ORDERED: ACETAMINOPHEN 325 MG TABLET PO PRN (13:22)
[2018-05-06] MEDS ORDERED: ALBUTEROL SULFATE HFA (90 MCG/PUFF) 200 PUFF/8.5 GM MDI IH PRN (14:00)
[2018-05-06] MEDS ORDERED: ACETAMINOPHEN 1,000 MG/100 ML RTUPB IV ONE (14:09)
[2018-05-06] MEDS ORDERED: KETOROLAC TROMETHAMINE INJ/PF 30 MG/1 ML SDV ONE (14:09)
--- NOTE | 2018-05-06 14:46 | RADIOLOGY REPORT (SQ) ---
EXAM DESCRIPTION: PELVIS AP COMPLETED DATE/TIME: 05/06/2018 2:10 pm REASON FOR STUDY: Post Op Long Cassette in PACU M87.152 OSTEONECROSIS DUE TO DRUGS, LEFT FEMUR COMPARISON: 09/24/2017 NUMBER OF VIEWS: One view TECHNIQUE: Digital radiographic images of the pelvis post-procedure LIMITATIONS: None. FINDINGS: BONES: No worrisome or unexpected findings post-procedure. DEVICE: Prior right hip arthroplasty, stable in appearance. Status post left total hip arthroplasty . Components of the device in appropriate location. SOFT TISSUES: No worrisome findings. Expected postoperative soft tissue changes. IMPRESSION: SATISFACTORY POSTOPERATIVE PELVIS. TECHNICAL DOCUMENTATION: JOB ID: [id number] [employer]- All Rights Reserved Reading location - IP/workstation name: [email or web address]
[2018-05-06] MEDS ORDERED: ALBUTEROL SULFATE HFA (90 MCG/PUFF) 200 PUFF/8.5 GM MDI IH ONE (16:02)
[2018-05-06] MEDS: LACTATED RINGERS 1000 ML IV PRN ×2 (17:01→18:21)
[2018-05-06] MEDS: OXYCODONE HCL IR 5 MG TABLET PO PRN (17:07)
[2018-05-06] MEDS: SENNOSIDES/DOCUSATE 8.6-50 MG 1 EACH TABLET PO SCH (17:09)
[2018-05-06] MEDS ORDERED: VECURONIUM BROMIDE INJ 10 MG VIAL IV ONE (19:52)
[2018-05-06] MEDS ORDERED: NEOSTIGMINE METHYLSULFATE 10 MG/10 ML VIAL ONE (19:52)
[2018-05-06] MEDS ORDERED: GLYCOPYRROLATE 1 MG/5 ML SYRINGE ONE (19:52)
[2018-05-06] MEDS ORDERED: SUCCINYLCHOLINE CHLORIDE INJ 200 MG/10 ML VIAL ONE (19:52)
[2018-05-06] MEDS ORDERED: DEXAMETHASONE SOD PHOSPHATE INJ 4 MG/1 ML VIAL ONE (19:52)
[2018-05-06] MEDS ORDERED: ONDANSETRON HCL INJ/PF 4 MG/2 ML SDV ONE (19:52)
[2018-05-06] MEDS: OXYCODONE HCL SR 10 MG TABLET PO SCH (21:43)
[2018-05-06] MEDS: BUDESONIDE/FORMOTEROL 80-4.5 MCG 60 PUFF/6.9 GM MDI IH SCH (22:56)
[2018-05-07] MEDS: OXYCODONE HCL IR 5 MG TABLET PO PRN (04:04)
[2018-05-07] MEDS ORDERED: LANSOPRAZOLE 30 MG TAB.RAP.DR PO SCH (06:00)
--- NOTE | 2018-05-07 06:50 | PDOC DISCHARGE SUMMARY ---
General - Admit/Disc Date/PCP Admission Date/Primary Care Provider: 05/06/18 10:01 [facility], [facility] Discharge Date: 05/07/18 - Discharge Diagnosis (1) Avascular necrosis of bone of left hip Is this a current diagnosis for this admission?: Yes - Additional Information Resuscitation Status: Full Code Discharge Diet: As Tolerated, Regular Discharge Activity: Activity As Tolerated, Balance Activity w/Rest, No Driving, No tub bath Home Medications: Albuterol Sulfate [Ventolin HFA MDI 18 GM] 2 puff IH Q6HP PRN 06/20/17 Budesonide/Formoterol Fumarate [Symbicort HFA 80-4.5 mcg Inhaler 6.9 gm] 2 puff IH Q12 06/20/17 Cyclobenzaprine HCl [Flexeril 10 mg Tablet] 10 mg PO Q12HP PRN 06/20/17 Hydrochlorothiazide [Hydrodiuril 25 mg Tablet] 25 mg PO DAILY 06/20/17 Lisinopril [Prinivil 40 mg Tablet] 40 mg PO DAILY 06/20/17 Meloxicam [Mobic 15 mg Tablet] 15 mg PO DAILY 06/20/17 Valacyclovir HCl [Valacyclovir] 500 mg PO DAILY 06/20/17 Ascorbic Acid [Vitamin C] 1 tab PO DAILY 08/24/17 Omeprazole Magnesium [Prilosec Otc] 40 mg PO DAILY 08/24/17 Buprenorphine [Butrans] 1 each TD .WEEKLY 12/28/17 Elviteg/Cob/Emtri/Tenof Alafen [Genvoya Tablet] 1 each PO DAILY 12/28/17 Lactobacillus Acidophilus [Probiotic] 1 each PO QAM 12/28/17 Levofloxacin [Levaquin 500 mg Tablet] 500 mg PO DAILY 12/28/17 Oxycodone HCl [Oxy-Ir 5 mg Tablet] 5 mg PO Q6HP PRN tablet 05/07/18 History of Present Illness History of Present Illness: EILEEN TAPIA is a 47 year old female Patient is a 47-year-old white female with 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 She is status post a left hip core decompression in the past with recurrent pain. She is now admitted for an elective left hip arthroplasty. Hospital Course Hospital Course: Patient is admitted through the operating room where she undergoes uncomplicated left hip arthroplasty. Because of her immunosuppressive status intraoperative use of OsteoSet beads with tobramycin is performed. Patient's return to floor in satisfactory condition. She makes excellent progress with physical therapy. Pain is moderately well controlled with current analgesic regimen. The patient continues to have a fair amount of oozing from the distal aspect the incision and the dressing is changed at least twice. Physical Exam Vital Signs: Temp Pulse Resp BP Pulse Ox 36.9 C 109 H 20 127/70 H 94 05/07/18 05:04 05/07/18 05:04 05/07/18 05:04 05/07/18 05:04 05/07/18 05:04 Pulse Oximeter Continuous Start: 05/06/18 16: 24 Freq: RTQ4 Status: Active Document 05/07/18 04:00 SFL (Rec: 05/07/18 05:33 SFL [id number]) Pulse Oximetry Assessment Oxygen Saturation (92-100) 92 Oxygen Delivery Method Room Air Equipment Usage Equipment in Use Continuous SpO2 Machine # 9 Intake & Output 05/05/18 05/06/18 05/07/18 06:59 06:59 06:59 Intake Total 4150 Output Total 1950 Balance 2200 General appearance: PRESENT: no acute distress, mild distress, obese Head exam: PRESENT: normocephalic Respiratory exam: PRESENT: unlabored Cardiovascular exam: PRESENT: RRR Pulses: PRESENT: +1 pedal pulses bilateral Vascular exam: PRESENT: normal capillary refill GI/Abdominal exam: PRESENT: soft Rectal exam: PRESENT: deferred Extremities exam: PRESENT: other - Left hip dressing is changed on the morning of discharge. The wound is well approximated with leola. There is no erythema. There is no induration. Leg lengths are equal. Distal neurovascular examination is intact. Neurological exam: PRESENT: alert, awake, oriented to person, oriented to place , oriented to time, oriented to situation. ABSENT: motor sensory deficit Psychiatric exam: PRESENT: appropriate affect, normal mood. ABSENT: homicidal ideation, suicidal ideation Skin exam: PRESENT: dry, intact, warm. ABSENT: cyanosis, rash Results Laboratory Results: 05/06/18 10:36 05/06/18 05/06/18 10:36 11:12 Potassium 3.4 L Blood Type O POSITIVE Antibody Screen NEGATIVE Impressions: Pelvis X-Ray 05/06/18 13:24 IMPRESSION: SATISFACTORY POSTOPERATIVE PELVIS. Status: Imported from PACS Qualifiers - * PATIENT BEING DISCHARGED WITH ANY OF THE FOLLOWING DIAGNOSIS: No VTE patient discharged on overlapping Therapy?: Yes Plan Discharge Plan: Patient be discharged home with home health nursing and home health physical therapy. Left hip dressing can be changed on a as needed basis. Patient to be furnished with rolling walker and bedside commode. Follow-up with Dr. Elsi Dozier [place] for surgery in 2 weeks for staple removal. Time Spent: Less than 30 Minutes
[2018-05-07 06:52] LABS: HEMATOCRIT 36.8 % (36.0-47.0); HEMOGLOBIN 12.3 g/dL (12.0-15.5); MEAN CORPUSCULAR HEMOGLOBIN 28.9 pg (27.0-33.4); MEAN CORPUSCULAR HGB CONC 33.4 g/dL (32.0-36.0); MEAN CORPUSCULAR VOLUME 87 fl (80-97); PLATELET COUNT 232 10^3/uL (150-450); RED BLOOD COUNT 4.25 10^6/uL (3.72-5.28); RED CELL DISTRIBUTION WIDTH 19.2 % (11.5-14.0); WHITE BLOOD COUNT 13.3 10^3/uL (4.0-10.5)
[2018-05-07 07:22] LABS: ANION GAP 10 (5-19); BLOOD UREA NITROGEN 11 mg/dL (7-20); CALCIUM 9.6 mg/dL (8.4-10.2); CARBON DIOXIDE 28 mmol/L (22-30); CHLORIDE 103 mmol/L (98-107); GLUCOSE 99 mg/dL (75-110); POTASSIUM 4.2 mmol/L (3.6-5.0); SODIUM 140.9 mmol/L (137-145)
[2018-05-07] MEDS ORDERED: (PENDING PHARMACY ID) (Buprenorphine [Butrans] 1 EACH) TD SCH (08:00)
[2018-05-07] MEDS ORDERED: TRANEXAMIC ACID INJ/PF 1,000 MG/10 ML SDV IV ONE (08:00)
[2018-05-07] MEDS ORDERED: LISINOPRIL 10 MG TABLET PO SCH (10:00)
[2018-05-07] MEDS ORDERED: VALACYCLOVIR HCL 500 MG TABLET PO SCH (10:00)
[2018-05-07] MEDS ORDERED: HYDROCHLOROTHIAZIDE 25 MG TABLET PO SCH (10:00)
[2018-05-07] MEDS ORDERED: OMEPRAZOLE MAGNESIUM PO SCH (10:00)
[2018-05-07] MEDS ORDERED: [UNRECOGNIZED DRUG - OTHER] PO SCH (10:00)
[2018-05-07] MEDS ORDERED: LEVOFLOXACIN 500 MG TABLET PO SCH (10:00)
[2018-05-07] MEDS ORDERED: PRENATAL VITAMIN W DHA CAPSULE PO SCH (10:00)
[2018-05-07] MEDS: OXYCODONE HCL SR 10 MG TABLET PO SCH (10:40)
[2018-05-07] MEDS: SENNOSIDES/DOCUSATE 8.6-50 MG 1 EACH TABLET PO SCH (10:42)
[2018-05-07] MEDS: BUDESONIDE/FORMOTEROL 80-4.5 MCG 60 PUFF/6.9 GM MDI IH SCH (10:43)
[2018-05-07 12:37] VITALS: BP 127/70
== END 2018-05-07 13:09 | disposition home health service (06) | DRG 970 ==
LOC: INOR 10:01 → 4S 16:21
PROVIDERS: ADMIT Orthopaedic Surgery; ATTEND Orthopaedic Surgery
PROC: 3E0U029 Introduction of Other Anti-infective into Joints, Open Approach (ICD-10-PCS; 2018-05-06)
PROC: 0SRB02Z Replacement of Left Hip Joint with Metal on Polyethylene Synthetic Substitute, Open Approach (ICD-10-PCS; principal; 2018-05-06 11:15)
DX: B20 Human immunodeficiency virus [HIV] disease (principal); M87.152 Osteonecrosis due to drugs, left femur; T37.5X5A Adverse effect of antiviral drugs, initial encounter; I10 Essential (primary) hypertension; K21.9 Gastro-esophageal reflux disease without esophagitis; F17.200 Nicotine dependence, unspecified, uncomplicated; Z88.6 Allergy status to analgesic agent; Z79.899 Other long term (current) drug therapy; Z96.641 Presence of right artificial hip joint; Z92.25 Personal history of immunosuppression therapy
CPT/HCPCS: 01214; 36415; 72170; 80048; 81025; 84132; 85027; 86850; 86900; 86901; 88304; 88311; 94762; 94799; C9290; G8978-GP; G8979-GP; J0131; J0330; J0690; J1100; J1741; J1885; J2250; J2270; J2405; J2704; J3010; J3260; J3490; J7050; J7120

== ENCOUNTER → 2019-01-29 | Outpatient (CLI) | payer MEDICARE, MEDICAID ==
[2019-01-29 11:30] LABS: ABSOLUTE EOSINOPHILS # (AUTO) 0.8 10^3/uL (0.0-0.6); ABSOLUTE LYMPHOCYTES (AUTO) 1.5 10^3/uL (0.5-4.7); ABSOLUTE MONOCYTES (AUTO) 0.4 10^3/uL (0.1-1.4); BASOPHILS % (AUTO) 0.8 % (0-2); EOSINOPHILS % (AUTO) 17.2 % (0-6); HEMATOCRIT 42.4 % (36.0-47.0); HEMOGLOBIN 14.7 g/dL (12.0-15.5); LYMPHOCYTES % (AUTO) 31.6 % (13-45); MEAN CORPUSCULAR HEMOGLOBIN 31.3 pg (27.0-33.4); MEAN CORPUSCULAR HGB CONC 34.7 g/dL (32.0-36.0); MEAN CORPUSCULAR VOLUME 90 fl (80-97); PLATELET COUNT 191 10^3/uL (150-450); RED BLOOD COUNT 4.71 10^6/uL (3.72-5.28); RED CELL DISTRIBUTION WIDTH 16.4 % (11.5-14.0); SEGMENTED NEUTROPHILS % (AUTO) 41.4 % (42-78); TOTAL CELLS COUNTED % (AUTO) 100 %; WHITE BLOOD COUNT 4.8 10^3/uL (4.0-10.5)
[2019-01-29 11:33] LABS: APPEARANCE,URINE CLOUDY; BILIRUBIN,URINE NEGATIVE (NEGATIVE); COLOR,URINE YELLOW; GLUCOSE, URINE NEGATIVE (NEGATIVE); KETONES,URINE NEGATIVE (NEGATIVE); LEUKOCYTE ESTERASE,URINE TRACE (NEGATIVE); NITRITE,URINE NEGATIVE (NEGATIVE); PROTEIN,URINE 30 mg/dL (NEGATIVE); URINE SPECIFIC GRAVITY 1.029
--- NOTE | 2019-01-29 11:50 | RADIOLOGY REPORT (SQ) ---
EXAM DESCRIPTION: CHEST PA/LATERAL COMPLETED DATE/TIME: 01/29/2019 11:28 am REASON FOR STUDY: PRE-OP COMPARISON: 06/18/2018 EXAM PARAMETERS: NUMBER OF VIEWS: two views TECHNIQUE: Digital Frontal and Lateral radiographic views of the chest acquired. RADIATION DOSE: NA LIMITATIONS: none FINDINGS: LUNGS AND PLEURA: No opacities, masses or pneumothorax. No pleural effusion. MEDIASTINUM AND HILAR STRUCTURES: No masses or contour abnormalities. HEART AND VASCULAR STRUCTURES: Heart normal size. No evidence for failure. BONES: No acute findings. HARDWARE: None in the chest. OTHER: No other significant finding. IMPRESSION: NO SIGNIFICANT RADIOGRAPHIC FINDING IN THE CHEST. TECHNICAL DOCUMENTATION: JOB ID: [id number] [employer]- All Rights Reserved Reading location - IP/workstation name: [email or web address]
--- NOTE | 2019-01-29 11:50 | EKG REPORT ---
SEVERITY:- BORDERLINE ECG - SINUS RHYTHM BORDERLINE PROLONGED QT INTERVAL : Confirmed by: Edgar Mcdonald MD 29-Jan-2019 11:49:35
[2019-01-29 12:06] LABS: ANION GAP 9 (5-19); BLOOD UREA NITROGEN 12 mg/dL (7-20); CALCIUM 9.5 mg/dL (8.4-10.2); CARBON DIOXIDE 27 mmol/L (22-30); CHLORIDE 102 mmol/L (98-107); GLUCOSE 113 mg/dL (75-110); POTASSIUM 3.2 mmol/L (3.6-5.0); SODIUM 138.1 mmol/L (137-145)
== END ==
LOC: OD 10:32
PROVIDERS: ATTEND Orthopaedic Surgery
DX: Z01.810 Encounter for preprocedural cardiovascular examination (principal); Z01.811 Encounter for preprocedural respiratory examination; M17.11 Unilateral primary osteoarthritis, right knee; I10 Essential (primary) hypertension; B20 Human immunodeficiency virus [HIV] disease
CPT/HCPCS: 36415; 71046; 80048; 81001; 85025; 93005; 93010

== ENCOUNTER 2019-02-12 05:24 | Inpatient (IN) | payer MEDICARE, MEDICAID ==
[~2019-02-12 05:24] MED LIST changes: +BUPIVACAINE INJ/PF LIPOSOME/PF 266 MG/20 ML SDV INJ PRN; +CEFAZOLIN INJ 1 GM VIAL IV PRN; +CEFAZOLIN INJ 1 GM VIAL ONE; +IBUPROFEN 800 MG in NORMAL SALINE 250 ML IV PRN; +LACTATED RINGERS 1000 ML IV PRN; +OXYCODONE HCL SR 10 MG TABLET PO ONE; +OXYCODONE HCL SR 10 MG TABLET PO PRN; +PANTOPRAZOLE SODIUM 20 MG TABLET.DR PO ONE; +PANTOPRAZOLE SODIUM 20 MG TABLET.DR PO PRN; +VANCOMYCIN HCL 1,000 MG in DEXTROSE 5%-WATER 250 ML IV PRN
[2019-02-12] MEDS ORDERED: CEFAZOLIN 2 GM/D5W RTU 2 GM/50 ML RTUPB IV ONE (06:20)
[2019-02-12] MEDS ORDERED: MIDAZOLAM 2 MG/2 ML INJ ONE (06:56)
[2019-02-12] MEDS ORDERED: PROPOFOL INJ 200 MG/20 ML VIAL IV ONE (06:57)
[2019-02-12] MEDS ORDERED: ONDANSETRON HCL INJ/PF 4 MG/2 ML SDV ONE (06:57)
[2019-02-12] MEDS ORDERED: TRANEXAMIC ACID INJ/PF 1,000 MG/10 ML SDV IV ONE ×3 (06:57→10:00)
[2019-02-12] MEDS ORDERED: CEFAZOLIN 2 GM/D5W RTU 2 GM/50 ML RTUPB IV PRN (07:01)
[2019-02-12] MEDS ORDERED: HYDROMORPHONE HCL INJ/PF 2 MG/ML AMPULE ONE ×2 (07:18→09:37)
[2019-02-12] MEDS ORDERED: FENTANYL CITRATE INJ/PF 250 MCG/5 ML AMPULE ONE (07:18)
[2019-02-12] MEDS ORDERED: BUPIVACAINE HCL 0.25% /EPINEPHRINE INJ/PF 30 ML SDV ONE (07:35)
[2019-02-12] MEDS ORDERED: MEPERIDINE HCL/PF INJ 25 MG/1 ML DISP.SYRIN IV PRN (08:03)
[2019-02-12] MEDS ORDERED: FENTANYL CITRATE INJ/PF 100 MCG/2 ML AMPUL IV PRN ×3 (08:03)
[2019-02-12] MEDS ORDERED: DIPHENHYDRAMINE HCL 50 MG/ML VIAL IV PRN ×2 (08:03→08:39)
[2019-02-12] MEDS ORDERED: PROMETHAZINE HCL INJ 25 MG/1 ML VIAL IV PRN (08:03)
[2019-02-12] MEDS ORDERED: THROMBIN (BOVINE) TOPICAL 20000 UNIT VIAL ONE (08:28)
[2019-02-12] MEDS ORDERED: ALBUTEROL SULFATE HFA (90 MCG/PUFF) 200 PUFF/8.5 GM MDI IH PRN (08:38)
[2019-02-12] MEDS ORDERED: ONDANSETRON HCL INJ/PF 4 MG/2 ML SDV IV PRN (08:39)
[2019-02-12] MEDS ORDERED: OXYCODONE HCL IR 5 MG TABLET PO PRN (08:39)
[2019-02-12] MEDS ORDERED: RINGERS SOLUTION,LACTATED 1,000 ML IV PRN (08:39)
[2019-02-12] MEDS ORDERED: MAG HYDROX/AL HYDROX/SIMETH SUSP 30 ML UDCUP PO PRN (08:39)
[2019-02-12] MEDS ORDERED: ONDANSETRON 4 MG TAB.RAPDIS PO PRN (08:39)
--- NOTE | 2019-02-12 08:44 | Operative Report ---
Operative Report DATE OF SURGERY: 02/12/19 PREOPERATIVE DIAGNOSIS: Right knee arthritis OPERATION: Right knee arthroplasty SURGEON: YAMILET WANG ANESTHESIA: GA TISSUE REMOVED OR ALTERED: Bone to pathology ESTIMATED BLOOD LOSS: 100 PROCEDURE: Implants used: Femur: Butternut triathlon size 5 CR femur Tibia: 5 tibia Tibial liner: 9 mm CS insert Patella: 85 mm oval patella Procedure with the patient supine on the operating table the right the limb is prepped and draped in a sterile fashion. The limb was elevated for exsanguination and the tourniquet inflated to 280 torr. A standard midline median parapatellar approach the knee is taken. Access is gained to the femoral canal through the intercondylar notch. Intramedullary alignment instrumentation used to resect 10 mm of distal femur in 5 of valgus. Sizing guide indicated a size 5 femur. Appropriate cutting jig is then used to fashion anterior posterior and chamfer cuts. A trial reduction femurs performed and this is judged to be adequate. Attention was next turned to the tibia. Using an extra medullary alignment system 9 millimeters was resected off the lateral tibial plateau. This is sized to a size 5 tibia. A trial reduction was now performed with a 5 femur and a 5 tibia using a 9 millimeters spacer. It is full extension and central patellofemoral tracking. The articular surface the patella was next resected using an oscillating saw. All trial implants were removed. Polymethylmethacrylate containing tobramycin is mixed and used to cement the above implants in place. On adequate curing the cement excess cement was removed the tourniquet was deflated hemostasis obtained the wound is then closed in layers using interrupted Vicryl followed by leola. A sterile compressive dressing was applied and the patient returned to recovery room in satisfactory condition.
[2019-02-12] MEDS ORDERED: (PENDING PHARMACY ID) (Buprenorphine [Butrans] 1 EACH) TD SCH (08:45)
[2019-02-12] MEDS: FENTANYL CITRATE INJ/PF 100 MCG/2 ML AMPUL ONE ×2 (09:15→09:25)
[2019-02-12] MEDS ORDERED: IPRATROPIUM/ALBUTEROL 0.5-2.5 MG/3 ML AMPUL NEB ONE (09:33)
[2019-02-12] MEDS ORDERED: LEVOFLOXACIN 500 MG TABLET PO SCH (10:00)
[2019-02-12] MEDS ORDERED: (PENDING PHARMACY ID) (Bictegrav/Emtricit/Tenofov Ala [Biktarvy 50-200-25 Mg Tablet] 1 TAB PO SCH (10:00)
[2019-02-12] MEDS ORDERED: ASCORBIC ACID PO SCH (10:00)
--- NOTE | 2019-02-12 10:00 | RADIOLOGY REPORT (SQ) ---
EXAM DESCRIPTION: KNEE RIGHT 2 VIEWS COMPLETED DATE/TIME: 02/12/2019 9:26 am REASON FOR STUDY: Post OP -Long Cassette in PACU M17.11 UNILATERAL PRIMARY OSTEOARTHRITIS, RIGHT KN EE COMPARISON: None. NUMBER OF VIEWS: Two view(s). TECHNIQUE: Digital radiographic images of the right knee post-procedure. LIMITATIONS: None. FINDINGS: BONES: No worrisome or unexpected findings post-procedure. DEVICE: Total knee arthroplasty SOFT TISSUES: No worrisome findings. Expected postoperative soft tissue changes. IMPRESSION: SATISFACTORY POSTOPERATIVE RIGHT KNEE. TECHNICAL DOCUMENTATION: JOB ID: [id number] [employer]- All Rights Reserved Reading location - IP/workstation name: [email or web address]
[2019-02-12] MEDS: HYDROMORPHONE HCL INJ/PF 2 MG/ML AMPULE IV PRN ×4 (11:43→21:42)
[2019-02-12] MEDS ORDERED: ROCURONIUM BROMIDE INJ 50 MG/5 ML VIAL IV ONE (12:47)
[2019-02-12] MEDS ORDERED: NEOSTIGMINE METHYLSULFATE 10 MG/10 ML VIAL ONE (12:47)
[2019-02-12] MEDS ORDERED: GLYCOPYRROLATE 1 MG/5 ML SYRINGE ONE (12:47)
[2019-02-12] MEDS ORDERED: DEXAMETHASONE SOD PHOSPHATE INJ 4 MG/1 ML VIAL ONE (12:47)
[2019-02-12] MEDS ORDERED: ACETAMINOPHEN 1,000 MG/100 ML RTUPB IV ONE (14:39)
[2019-02-12] MEDS: PREGABALIN 75 MG CAPSULE PO SCH ×2 (15:24→17:26)
[2019-02-12] MEDS: HYDROCHLOROTHIAZIDE 25 MG TABLET PO SCH (15:24)
[2019-02-12] MEDS: PRENATAL VITAMIN W DHA CAPSULE PO SCH (15:25)
[2019-02-12] MEDS: VALACYCLOVIR HCL 500 MG TABLET PO SCH (15:25)
[2019-02-12] MEDS: SENNOSIDES/DOCUSATE 8.6-50 MG 1 EACH TABLET PO SCH ×2 (15:25→17:26)
[2019-02-12] MEDS: OXYCODONE HCL SR 10 MG TABLET PO SCH ×2 (15:32→21:41)
[2019-02-12] MEDS: ASPIRIN 81 MG TABLET, ENT COATED PO SCH (15:32)
[2019-02-12] MEDS: IBUPROFEN 800 MG in NORMAL SALINE 250 ML IV SCH ×2 (15:33→21:40)
[2019-02-12] MEDS: CEFAZOLIN SODIUM 2 GM in DEXTROSE 5%-WATER 100 ML IV SCH (15:38)
[2019-02-12] MEDS: FLUTICASONE/VILANTEROL 100-25 MCG/DOSE IH SCH (17:26)
[2019-02-13] MEDS: CEFAZOLIN SODIUM 2 GM in DEXTROSE 5%-WATER 100 ML IV SCH (00:25)
[2019-02-13] MEDS: HYDROMORPHONE HCL INJ/PF 2 MG/ML AMPULE IV PRN (04:26)
[2019-02-13] MEDS: IBUPROFEN 800 MG in NORMAL SALINE 250 ML IV SCH (05:32)
[2019-02-13] MEDS ORDERED: PANTOPRAZOLE SODIUM 40 MG TABLET.DR PO SCH (06:00)
[2019-02-13 06:28] LABS: HEMATOCRIT 36.8 % (36.0-47.0); HEMOGLOBIN 12.5 g/dL (12.0-15.5); MEAN CORPUSCULAR HEMOGLOBIN 30.9 pg (27.0-33.4); MEAN CORPUSCULAR VOLUME 91 fl (80-97); PLATELET COUNT 202 10^3/uL (150-450); RED BLOOD COUNT 4.05 10^6/uL (3.72-5.28); RED CELL DISTRIBUTION WIDTH 16.2 % (11.5-14.0); WHITE BLOOD COUNT 7.2 10^3/uL (4.0-10.5)
[2019-02-13 06:53] LABS: ANION GAP 5 (5-19); BLOOD UREA NITROGEN 12 mg/dL (7-20); CALCIUM 9.5 mg/dL (8.4-10.2); CARBON DIOXIDE 25 mmol/L (22-30); CHLORIDE 105 mmol/L (98-107); GLUCOSE 102 mg/dL (75-110); POTASSIUM 3.7 mmol/L (3.6-5.0); SODIUM 135.3 mmol/L (137-145)
--- NOTE | 2019-02-13 06:56 | PDOC DISCHARGE SUMMARY ---
General - Admit/Disc Date/PCP Admission Date/Primary Care Provider: 02/12/19 05:24 ARELY HOLLEY Discharge Date: 02/13/19 - Discharge Diagnosis (1) Arthritis of right knee Is this a current diagnosis for this admission?: Yes - Additional Information Resuscitation Status: Full Code Home Medications: Albuterol Sulfate [Ventolin HFA MDI 18 GM] 2 puff IH Q6HP PRN 06/20/17 Budesonide/Formoterol Fumarate [Symbicort HFA 80-4.5 mcg Inhaler 6.9 gm] 2 puff IH Q12 06/20/17 Cyclobenzaprine HCl [Flexeril 10 mg Tablet] 10 mg PO Q12HP PRN 06/20/17 Hydrochlorothiazide [Hydrodiuril 25 mg Tablet] 25 mg PO DAILY 06/20/17 Meloxicam [Mobic 15 mg Tablet] 15 mg PO DAILY 06/20/17 Valacyclovir HCl [Valacyclovir] 500 mg PO DAILY 06/20/17 Ascorbic Acid [Vitamin C] 1 tab PO DAILY 08/24/17 Omeprazole Magnesium [Prilosec Otc] 40 mg PO DAILY 08/24/17 Buprenorphine [Butrans] 1 each TD .WEEKLY 12/28/17 Lactobacillus Acidophilus [Probiotic] 1 each PO QAM 12/28/17 Levofloxacin [Levaquin 500 mg Tablet] 500 mg PO DAILY 12/28/17 Bictegrav/Emtricit/Tenofov Ala [Biktarvy 50-200-25 mg Tablet] 1 tab PO DAILY 01/30/19 Ipratropium/Albuterol Sulfate [Duoneb 3 ml Ampul] 3 ml NEB RTQ6 02/12/19 History of Present Illness History of Present Illness: EILEEN TAPIA is a 48 year old female Patient is a 48-year-old white female with progressive right knee pain and functional disability second osteoarthritis. Patient is admitted for elective right knee arthroplasty. Hospital Course Hospital Course: Patient is admitted through the operating room and undergoes uncomplicated right knee arthroplasty. She is returned to floor where she seen by physical therapy and ambulates 30 feet on the first afternoon following surgery. Later that evening by her report she and her have not been ambulating in the hallway. Compressive dressing is removed on the first postoperative morning. The underlying OpSite dressing is clean dry and intact. There is minimal pedal edema. Distal neurovascular examination is intact. Physical Exam Vital Signs: Temp Pulse Resp BP Pulse Ox 36.6 C 111 H 16 136/75 H 97 02/12/19 23:29 02/12/19 23:29 02/12/19 23:29 02/12/19 23:29 02/12/19 23:29 Intake & Output 02/11/19 02/12/19 02/13/19 06:59 06:59 06:59 Intake Total 0 5700 Output Total 2500 Balance 0 3200 Weight 115 kg Physical Exam: Obese middle-aged white female lying in a hospital bed. Patient is alert appropriate and oriented. General appearance: PRESENT: no acute distress, mild distress, obese Head exam: PRESENT: normocephalic Respiratory exam: PRESENT: unlabored Cardiovascular exam: PRESENT: RRR Pulses: PRESENT: +1 pedal pulses bilateral GI/Abdominal exam: PRESENT: soft Rectal exam: PRESENT: deferred Extremities exam: PRESENT: other - Right lower extremity site dressing is clean dry and intact. There is minimal pedal edema. Distal neurovascular examination is intact. Neurological exam: PRESENT: alert, awake, oriented to person, oriented to place, oriented to time, oriented to situation. ABSENT: motor sensory deficit Psychiatric exam: PRESENT: appropriate affect, normal mood. ABSENT: homicidal ideation, suicidal ideation Skin exam: PRESENT: dry, intact, warm. ABSENT: cyanosis, rash Results Laboratory Results: 02/13/19 05:35 02/12/19 02/12/19 02/13/19 06:40 06:40 05:35 WBC 7.2 RBC 4.05 Hgb 12.5 Hct 36.8 MCV 91 MCH 30.9 MCHC 34.0 RDW 16.2 H Plt Count 202 Potassium 3.8 Serum HCG, Qual NEGATIVE Impressions: Knee X-Ray 02/12/19 08:41 IMPRESSION: SATISFACTORY POSTOPERATIVE RIGHT KNEE. Status: Imported from [facility] Qualifiers - * PATIENT BEING DISCHARGED WITH ANY OF THE FOLLOWING DIAGNOSIS: No VTE patient discharged on overlapping Therapy?: Yes Plan Discharge Plan: Patient be discharged home with home health services and DME. Follow-up with Dr. Calzada and [facility] for surgery in 2 weeks for staple removal. Time Spent: Less than 30 Minutes
[2019-02-13] MEDS: OXYCODONE HCL SR 10 MG TABLET PO SCH (09:32)
[2019-02-13] MEDS: HYDROCHLOROTHIAZIDE 25 MG TABLET PO SCH (09:32)
[2019-02-13] MEDS: PRENATAL VITAMIN W DHA CAPSULE PO SCH (09:32)
[2019-02-13] MEDS: PREGABALIN 75 MG CAPSULE PO SCH (09:32)
[2019-02-13] MEDS: VALACYCLOVIR HCL 500 MG TABLET PO SCH (09:33)
[2019-02-13] MEDS: SENNOSIDES/DOCUSATE 8.6-50 MG 1 EACH TABLET PO SCH (09:33)
[2019-02-13] MEDS: ASPIRIN 81 MG TABLET, ENT COATED PO SCH (09:33)
[2019-02-13] MEDS: FLUTICASONE/VILANTEROL 100-25 MCG/DOSE IH SCH (09:34)
[2019-02-13] MEDS ORDERED: ASCORBIC ACID 500 MG TABLET PO SCH (10:00)
[2019-02-13 11:06] VITALS: BP 106/82
== END 2019-02-13 11:35 | disposition home health service (06) | DRG 470 ==
LOC: INOR 05:24 → 4S 10:19
PROVIDERS: ADMIT Orthopaedic Surgery; ATTEND Orthopaedic Surgery
PROC: 0SRC0J9 Replacement of Right Knee Joint with Synthetic Substitute, Cemented, Open Approach (ICD-10-PCS; principal; 2019-02-12 07:30)
DX: M17.11 Unilateral primary osteoarthritis, right knee (principal); B20 Human immunodeficiency virus [HIV] disease; M25.561 Pain in right knee; K21.9 Gastro-esophageal reflux disease without esophagitis; I10 Essential (primary) hypertension; M54.89 Other dorsalgia; F17.210 Nicotine dependence, cigarettes, uncomplicated; Z96.643 Presence of artificial hip joint, bilateral; Z96.652 Presence of left artificial knee joint; Z79.2 Long term (current) use of antibiotics; Z79.51 Long term (current) use of inhaled steroids; Z79.899 Other long term (current) drug therapy
CPT/HCPCS: 01402; 36415; 80048; 84132; 84703; 85027; 88305; 88311; 94799; J0131; J0690; J1100; J1170; J1741; J2250; J2405; J2704; J3010; J3370; J3490; J7050; J7060; J7620

== ENCOUNTER 2020-09-15 12:51 | Day surgery (SDC) | payer MEDICARE, MEDICAID ==
[~2020-09-15 12:51] MED LIST changes: -BUPIVACAINE INJ/PF LIPOSOME/PF 266 MG/20 ML SDV INJ PRN; -CEFAZOLIN INJ 1 GM VIAL IV PRN; -CEFAZOLIN INJ 1 GM VIAL ONE; -IBUPROFEN 800 MG in NORMAL SALINE 250 ML IV PRN; +KETOROLAC TROMETHAMINE 0.45% 4 DROP/0.4 ML DROPERETTE OD PRN; -LACTATED RINGERS 1000 ML IV PRN; -LIDOCAINE 0.5% INJ-PF (5 MG/ML) 50 ML SDV SUBCUT PRN; -OXYCODONE HCL SR 10 MG TABLET PO ONE; -OXYCODONE HCL SR 10 MG TABLET PO PRN; -PANTOPRAZOLE SODIUM 20 MG TABLET.DR PO ONE; -PANTOPRAZOLE SODIUM 20 MG TABLET.DR PO PRN; -VANCOMYCIN HCL 1,000 MG in DEXTROSE 5%-WATER 250 ML IV PRN
[2020-09-15] MEDS: BESIFLOXACIN HCL 0.6% OPH SUSP 5 ML BOTTLE OD PRN ×4 (13:56→14:49)
[2020-09-15] MEDS: TROPICAMIDE 1% OPH SOLN 15 ML OD PRN ×3 (13:56→14:16)
[2020-09-15] MEDS: CYCLOPENTOLATE 0.2%/PHENYLEPHRINE 1% OPH SOLN 2 ML OD PRN ×3 (13:56→14:16)
[2020-09-15] MEDS: TETRACAINE HCL 0.5% OPH SOLN 4 ML OD PRN ×3 (13:57→14:28)
[2020-09-15] MEDS ORDERED: MIDAZOLAM 2 MG/2 ML INJ ONE (14:10)
[2020-09-15] MEDS: EPINEPHRINE INJ/PF 1 MG/1 ML AMPULE ONE ×2 (14:37→14:40)
[2020-09-15] MEDS: CHONDR SU A NA/HYALUR INTRAOC KIT (SURGICARE) ONE ×2 (14:37→14:40)
[2020-09-15] MEDS: LIDOCAINE 1%/PHENYLEPHRINE 1.5% 1 ML VIAL ONE ×2 (14:37→14:40)
[2020-09-15] MEDS: DORZOLAMIDE HCL 2%/TIMOLOL MALEAT 0.5% OPH SOLN 10 ML OD PRN ×2 (14:49)
[2020-09-15] MEDS: PREDNISOLONE ACETATE 1% OPH SUSP 5 ML OD PRN ×2 (14:49)
[2020-09-15] MEDS ORDERED: FENTANYL CITRATE INJ/PF 100 MCG/2 ML AMPUL ONE (14:53)
--- NOTE | 2020-09-15 16:02 | Operative Report ---
Operative Report-[facility] Operative Report: DATE OF SURGERY: September 15, 2020 PREOPERATIVE DIAGNOSIS: NUCLEAR CATARACT, RIGHT EYE. POSTOPERATIVE DIAGNOSIS: NUCLEAR CATARACT, RIGHT EYE. PROCEDURE PERFORMED: PHACOEMULSIFICATION WITH POSTERIOR CHAMBER INTRAOCULAR LENS IMPLANT, RIGHT EYE. SURGEON: Marlon Tineo DO MEDICATIONS AND ANESTHESIA: Versed: IV Versed Tetracaine drops: 1 to 2 drops given as needed COMPLICATION: None INDICATIONS FOR SURGERY: Medical necessity: Best corrected visual acuity worse than 20/40 secondary to cataracts with impairment of ability to carry out needs or desired activities, blurred vision, visual distortion, reduced contrast sensitivity and/or glare with association functional impairment and supporting documentation/testing, and cataracts causing symptomatic impairment of visual functions not corrected with tolerable changes in glasses or contact lenses interfering with activities of daily life. PROCEDURE: Consent: The risks, benefits and alternatives of this procedures was discussed with the patient. The patient read and signed the consent forms, was identified and was seated in the exam chair. IOL: MX 60 E 17.0 IOL Diopters: Phacoemulsification with posterior chamber intraocular lens implant: The face was prepped with 5% povidone iodine solution, and a few drops of 5% povidone iodine solution was instilled into the inferior fornix. A non-fenestrated drape was placed over the eye and the lids were parted with the speculum. A paracentesis was made with a 15 degree blade, and 1% lidocaine MPF followed by viscoelastic was injected into the anterior chamber. A 2.4 mm metal micro- keratome was used to create a temporal clear corneal incision. A circular anterior capsulorrhexis was created, followed by hydro-dissection and hydro- delineation. The phacoemulsification hand piece was inserted and the nucleus was removed with the Phaco chop technique. The irrigation-aspiration hand piece was used to remove the residual cortex, and vacuum the posterior capsule. The capsular bag was inflated and viscoelastic and the above-mentioned IOL was injected into the eye with care to insert both leaning and trailing haptics in the capsular bag. The irrigation/aspiration hand piece was reinserted to remove residual viscoelastic from the capsular bag and anterior chamber. The corneal incision was hydrated, and anterior chamber was inflated with sterile BSS via the paracentesis site, and found to be watertight. Postop medication: 1 drop of prednisolone into operative by followed by 1 drop of Cosopt into operative eye followed by 1 drop of Besivance intraoperative by other:
== END 2020-09-15 15:30 | disposition home or self-care (01) ==
LOC: SC 12:51
PROVIDERS: ATTEND Ophthalmology
DX: H25.11 Age-related nuclear cataract, right eye (principal); I10 Essential (primary) hypertension; E78.00 Pure hypercholesterolemia, unspecified; F17.210 Nicotine dependence, cigarettes, uncomplicated; J44.9 Chronic obstructive pulmonary disease, unspecified; K21.9 Gastro-esophageal reflux disease without esophagitis; E66.01 Morbid (severe) obesity due to excess calories
CPT/HCPCS: 66984; J2250; J3490 ×2; A9270; J0171; J3010; V2632

== ENCOUNTER 2020-09-29 11:40 | Day surgery (SDC) | payer MEDICARE, MEDICAID ==
[~2020-09-29 11:40] MED LIST changes: +CHONDR SU A NA/HYALUR INTRAOC KIT (SURGICARE) ONE; +EPINEPHRINE INJ/PF 1 MG/1 ML AMPULE ONE; -KETOROLAC TROMETHAMINE 0.45% 4 DROP/0.4 ML DROPERETTE OD PRN; +KETOROLAC TROMETHAMINE 0.45% 4 DROP/0.4 ML DROPERETTE OS PRN; +LIDOCAINE 1%/PHENYLEPHRINE 1.5% 1 ML VIAL ONE
[2020-09-29] MEDS: TROPICAMIDE 1% OPH SOLN 15 ML OS PRN ×3 (13:01→13:21)
[2020-09-29] MEDS: BESIFLOXACIN HCL 0.6% OPH SUSP 5 ML BOTTLE OS PRN ×4 (13:01→14:02)
[2020-09-29] MEDS: CYCLOPENTOLATE 0.2%/PHENYLEPHRINE 1% OPH SOLN 2 ML OS PRN ×3 (13:01→13:21)
[2020-09-29] MEDS: TETRACAINE HCL 0.5% OPH SOLN 4 ML OS PRN ×3 (13:02→14:02)
[2020-09-29] MEDS ORDERED: MIDAZOLAM 2 MG/2 ML INJ ONE (13:41)
[2020-09-29] MEDS: PREDNISOLONE ACETATE 1% OPH SUSP 5 ML OS PRN ×2 (14:02)
[2020-09-29] MEDS: DORZOLAMIDE HCL 2%/TIMOLOL MALEAT 0.5% OPH SOLN 10 ML OS PRN ×2 (14:02)
--- NOTE | 2020-09-29 16:42 | Operative Report ---
Operative Report-[facility] Operative Report: DATE OF SURGERY: September 29, 2020 PREOPERATIVE DIAGNOSIS: NUCLEAR CATARACT, LEFT EYE. POSTOPERATIVE DIAGNOSIS: NUCLEAR CATARACT, LEFT EYE. PROCEDURE PERFORMED: PHACOEMULSIFICATION WITH POSTERIOR CHAMBER INTRAOCULAR LENS IMPLANT, LEFT EYE. SURGEON: Marlon Tineo DO MEDICATIONS AND ANESTHESIA: Versed: IV Versed Tetracaine drops: 1 to 2 drops given as needed COMPLICATION: None INDICATIONS FOR SURGERY: Medical necessity: Best corrected visual acuity worse than 20/40 secondary to cataracts with impairment of ability to carry out needs or desired activities, blurred vision, visual distortion, reduced contrast sensitivity and/or glare with association functional impairment and supporting documentation/testing, and cataracts causing symptomatic impairment of visual functions not corrected with tolerable changes in glasses or contact lenses interfering with activities of daily life. PROCEDURE: Consent: The risks, benefits and alternatives of this procedures was discussed with the patient. The patient read and signed the consent forms, was identified and was seated in the exam chair. IOL: MX 60 E 17.0 IOL Diopters: Phacoemulsification with posterior chamber intraocular lens implant: The face was prepped with 5% povidone iodine solution, and a few drops of 5% povidone iodine solution was instilled into the inferior fornix. A non-fenestrated drape was placed over the eye and the lids were parted with the speculum. A paracentesis was made with a 15 degree blade, and 1% lidocaine MPF followed by viscoelastic was injected into the anterior chamber. A 2.4 mm metal micro- keratome was used to create a temporal clear corneal incision. A circular anterior capsulorrhexis was created, followed by hydro-dissection and hydro- delineation. The phacoemulsification hand piece was inserted and the nucleus was removed with the Phaco chop technique. The irrigation-aspiration hand piece was used to remove the residual cortex, and vacuum the posterior capsule. The capsular bag was inflated and viscoelastic and the above-mentioned IOL was injected into the eye with care to insert both leaning and trailing haptics in the capsular bag. The irrigation/aspiration hand piece was reinserted to remove residual viscoelastic from the capsular bag and anterior chamber. The corneal incision was hydrated, and anterior chamber was inflated with sterile BSS via the paracentesis site, and found to be watertight. Postop medication:1 drop of prednisolone into operative by followed by 1 drop of Cosopt into operative eye followed by 1 drop of Besivance intraoperative by Other:
== END 2020-09-29 14:52 | disposition home or self-care (01) ==
LOC: SC 11:40
PROVIDERS: ATTEND Ophthalmology
DX: H25.12 Age-related nuclear cataract, left eye (principal); Z98.41 Cataract extraction status, right eye; I10 Essential (primary) hypertension; E78.00 Pure hypercholesterolemia, unspecified; F17.210 Nicotine dependence, cigarettes, uncomplicated; I25.10 Atherosclerotic heart disease of native coronary artery without angina pectoris; I25.2 Old myocardial infarction; J45.909 Unspecified asthma, uncomplicated; K21.9 Gastro-esophageal reflux disease without esophagitis
CPT/HCPCS: 66984; V2632; J2250; J3490 ×2; A9270; J0171; 142

== ENCOUNTER → 2020-11-18 | Outpatient (CLI) | payer MEDICARE, MEDICAID ==
--- NOTE | 2020-11-18 12:24 | RADIOLOGY REPORT (SQ) ---
EXAM DESCRIPTION: CHEST 2 VIEWS IMAGES COMPLETED DATE/TIME: 11/18/2020 10:53 am REASON FOR STUDY: MORBID (SEVERE) OBESITY DUE TO EXCESS CALORIES/ESSENTIAL HTN COMPARISON: 01/29/2019 EXAM PARAMETERS: NUMBER OF VIEWS: two views TECHNIQUE: Digital Frontal and Lateral radiographic views of the chest acquired. RADIATION DOSE: NA LIMITATIONS: none FINDINGS: LUNGS AND PLEURA: No opacities, masses or pneumothorax. No pleural effusion. MEDIASTINUM AND HILAR STRUCTURES: No masses or contour abnormalities. HEART AND VASCULAR STRUCTURES: Heart normal size. No evidence for failure. BONES: No acute findings. HARDWARE: None in the chest. OTHER: No other significant finding. IMPRESSION: NO ACUTE RADIOGRAPHIC FINDING IN THE CHEST. TECHNICAL DOCUMENTATION: JOB ID: [id number] [employer]- All Rights Reserved Reading location - IP/workstation name: [email or web address]
== END ==
LOC: RAD 10:35 → EDBD 10:35
PROVIDERS: ATTEND Surgery
DX: E66.01 Morbid (severe) obesity due to excess calories (principal); I10 Essential (primary) hypertension; K21.9 Gastro-esophageal reflux disease without esophagitis
CPT/HCPCS: 71046

== ENCOUNTER → 2020-11-18 | Outpatient (CLI) | payer MEDICARE, MEDICAID ==
[2020-11-18 12:00] LABS: ABSOLUTE EOSINOPHILS # (AUTO) 0.4 10^3/uL (0.0-0.6); ABSOLUTE LYMPHOCYTES (AUTO) 1.4 10^3/uL (0.5-4.7); ABSOLUTE MONOCYTES (AUTO) 0.4 10^3/uL (0.1-1.4); ABSOLUTE NEUT (AUTO) 2.6 10^3/uL (1.7-8.2); BASOPHILS % (AUTO) 0.9 % (0-2); HEMATOCRIT 43.6 % (36.0-47.0); HEMOGLOBIN 14.7 g/dL (12.0-15.5); LYMPHOCYTES % (AUTO) 29.6 % (13-45); MEAN CORPUSCULAR HEMOGLOBIN 30.7 pg (27.0-33.4); MEAN CORPUSCULAR HGB CONC 33.6 g/dL (32.0-36.0); MEAN CORPUSCULAR VOLUME 91 fl (80-97); MONOCYTES % (AUTO) 8.6 % (3-13); PLATELET COUNT 202 10^3/uL (150-450); RED BLOOD COUNT 4.77 10^6/uL (3.72-5.28); RED CELL DISTRIBUTION WIDTH 14.4 % (11.5-14.0); SEGMENTED NEUTROPHILS % (AUTO) 52.9 % (42-78); TOTAL CELLS COUNTED % (AUTO) 100 %; WHITE BLOOD COUNT 4.9 10^3/uL (4.0-10.5)
--- NOTE | 2020-11-18 12:17 | EKG REPORT ---
SEVERITY:- NORMAL ECG - SINUS RHYTHM : Confirmed by: Edgar Mcdonald MD 18-Nov-2020 12:16:31
[2020-11-18 12:24] LABS: ANION GAP 7 (5-19); BLOOD UREA NITROGEN 16 mg/dL (7-20); CALCIUM 9.9 mg/dL (8.4-10.2); CARBON DIOXIDE 26 mmol/L (22-30); CHLORIDE 103 mmol/L (98-107); GLUCOSE 102 mg/dL (75-110); POTASSIUM 4.4 mmol/L (3.6-5.0)
== END ==
LOC: OD 11:00
PROVIDERS: ATTEND Surgery
DX: E66.01 Morbid (severe) obesity due to excess calories (principal); K21.9 Gastro-esophageal reflux disease without esophagitis; I10 Essential (primary) hypertension
CPT/HCPCS: 36415; 80048; 84443; 85025; 93005; 93010